=== PATIENT | male | born 1965 | race Caucasian/White ===

== ENCOUNTER 2016-10-22 08:02 | Emergency (ER) | payer BC, OTHER ==
[~2016-10-22] VITALS: Ht 188 cm; Wt 156.7 kg
[2016-10-22 08:10] VITALS: TEMP 37.1; Ht 188 cm; Wt 156.7 kg
[2016-10-22] MEDS ORDERED: CEFAZOLIN SOD 1000MG/55 ML D5W IV STA (08:25)
[2016-10-22] MEDS ORDERED: MoRPHine SULFATE 4 MG/ML 1 ML CARP\\VIAL IV STA (08:31)
[2016-10-22 08:43] LABS: BASO % 0.2 %; BASO ABS # 0.04 K/uL (0-0.2); COMPLETE YES; EOS % 0.5 %; HEMATOCRIT 44.9 % (42-52); IG% 0.3 %; LYMPH % 6.2 %; LYMPH ABS # 1.03 K/uL (1.2-3.4); MEAN CELL VOLUME 82.7 fL (80-100); MEAN CORPUSCULAR HEMOGLOBIN 29.8 pg (25-34); MEAN CORPUSCULAR HGB CONC 36.1 g/dl (32-36); MEAN PLATELET VOLUME 9.8 fL (7.4-10.4); NEUT % 81.8 %; PLATELET COUNT 245 K/uL (130-400); RED BLOOD COUNT 5.43 M/uL (4.7-6.1); WHITE BLOOD COUNT 16.73 K/uL (4.8-10.8)
[2016-10-22] MEDS ORDERED: CEFAZOLIN SOD 2000 MG in DEXTROSE 5% 50ML IV SCH (09:00)
[2016-10-22 09:02] LABS: BUN/CREATININE RATIO 11.4 (10-20); CALCIUM 8.8 mg/dl (8.5-10.1); CREATININE 1.2 mg/dl (0.60-1.40); POTASSIUM 4.1 mmol/L (3.5-5.1)
[2016-10-22 09:46] VITALS: BP 114/73; PULSE 90; O2SAT 96
--- NOTE | 2016-10-22 09:52 | DIAGNOSTIC IMAGING REPORT ---
LEFT LOWER EXTREMITY VENOUS DOPPLER CLINICAL HISTORY: Left lower extremity edema. COMPARISON STUDY: No previous studies for comparison. TECHNIQUE: Sonography of the deep venous system of the left lower extremity was performed. Compression and augmentation were evaluated. FINDINGS: The left common femoral, superficial femoral and popliteal veins were compressible. Augmentation was normal. Flow was shown within the deep calf vessels. Note was made of edema within the left calf. No fluid collection is identified. IMPRESSION: No evidence of deep venous thrombus within the left lower extremity. Electronically signed by: Flo Gloria M.D. 10/22/2016 9:51 AM Dictated Date/Time: 10/22/2016 9:50 AM
--- NOTE | 2016-10-22 10:24 | EMERGENCY ROOM VISIT NOTE ---
History Report prepared by Stefano: Raiza Yusuf Under the Supervision of: Dr. Philip Slater D.O. First contact with patient: 08:20 Chief Complaint: LEG PAIN,LEG INJURY Stated Complaint: LEG INJURY History of Present Illness The patient is a 51 year old male who presents to the Emergency Room with complaints of severe left leg pain, swelling, and erythema starting 2 days ago. The patient has injured his left leg several times over the past few years. 2 days ago, while moving the exercise [employer] he swung his leg and hit the bar. Since then he has been having his symptoms. He normally has intermittent chronic left lower extremity swelling. Prior to the surgery the left leg was similar in appearance to the right leg except there was some slight discoloration. He describes his pain to be burning and throbbing. The patient reports worsening pain with walking. He denies fevers, chills, or any other complaints. He has a history of cellulitis. Source of History: patient Onset: 2 days ago Position: leg (left) Symptom Intensity: severe Quality: burning, other (swelling, erythema, throbbing pain) Modifying Factors (Worsening): other (walking) Associated Symptoms: No chills, No fevers Review of Systems See HPI for pertinent positives & negatives. A total of 10 systems reviewed and were otherwise negative. Past Medical & Surgical Medical Problems: (1) Cellulitis Family History Patient reports no known family medical history. Social History Smoking Status: Never Smoker Marital Status: Housing Status: lives with family Occupation Status: employed Current/Historical Medications Scheduled Cephalexin Monohydrate (Keflex), 500 MG PO QID Scheduled PRN Hydrocodone/Acetaminophen 7.5MG/325MG ([place] 7.5MG/325MG), 1 TAB PO Q8 PRN for Pain Allergies Coded Allergies: Penicillins (Unverified Allergy, Severe, CHILDHOOD ALLERGY, 10/22/16) Physical Exam Vital Signs Date Time Temp Pulse Resp B/P Pulse Ox O2 Delivery O2 Flow Rate FiO2 10/22/16 09:46 90 18 114/73 96 Room Air 10/22/16 08:10 37.1 109 18 149/80 93 Room Air Physical Exam CONSTITUTIONAL/VITAL SIGNS: Reviewed / noted above. GENERAL: Non-toxic in appearance. INTEGUMENTARY: Warm, dry, and Duck. HEAD: Normocephalic. EYES: without scleral icterus or trauma. ENT/OROPHARYNX: clear and moist. LYMPHADENOPATHY/NECK: Is supple without lymphadenopathy or meningismus. RESPIRATORY: Lungs clear and equal. CARDIOVASCULAR: Regular rate and rhythm. GI/ABDOMEN: Soft and nontender. No organomegaly or pulsatile mass. No rebound or guarding. Normal bowel sounds. EXTREMITIES: Warm and well perfused. Left leg has chronic skin darkening of the lower anterior tibia, there is new erythema noted inferior to this area specifically over the left lower extremity and ankle. There is increased warmth to the area and edema greater than baseline. Mild calf tenderness. BACK: No CVA tenderness. NEUROLOGICAL: Intact without focal deficits. PSYCHIATRIC: normal affect. MUSCULOSKELETAL: Normally developed with good muscle tone. Medical Decision & Procedures ER Provider Diagnostic Interpretation: US results as stated below per my review and radiologist interpretation: LEFT LOWER EXTREMITY VENOUS DOPPLER CLINICAL HISTORY: Left lower extremity edema. COMPARISON STUDY: No previous studies for comparison. TECHNIQUE: Sonography of the deep venous system of the left lower extremity was performed. Compression and augmentation were evaluated. FINDINGS: The left common femoral, superficial femoral and popliteal veins were compressible. Augmentation was normal. Flow was shown within the deep calf vessels. Note was made of edema within the left calf. No fluid collection is identified. IMPRESSION: No evidence of deep venous thrombus within the left lower extremity. Electronically signed by: Flo Gloria M.D. 10/22/2016 9:51 AM Dictated Date/Time: 10/22/2016 9:50 AM Laboratory Results 10/22/16 08:40 Red Blood Count 5.43, Mean Corpuscular Volume 82.7, Mean Corpuscular Hemoglobin 29.8, Mean Corpuscular Hemoglobin Concent 36.1, Mean Platelet Volume 9.8, Neutrophils (%) (Auto) 81.8, Lymphocytes (%) (Auto) 6.2, Monocytes (%) (Auto) 11.0, Eosinophils (%) (Auto) 0.5, Basophils (%) (Auto) 0.2, Neutrophils # (Auto ) 13.69, Lymphocytes # (Auto) 1.03, Monocytes # (Auto) 1.84, Eosinophils # (Auto ) 0.08, Basophils # (Auto) 0.04 10/22/16 08:40 Test 10/22/16 08:40 White Blood Count 16.73 K/uL (4.8-10.8) Red Blood Count 5.43 M/uL (4.7-6.1) Hemoglobin 16.2 g/dL (14.0-18.0) Hematocrit 44.9 % (42-52) Mean Corpuscular Volume 82.7 fL (80-100) Mean Corpuscular Hemoglobin 29.8 pg (25-34) Mean Corpuscular Hemoglobin Concent 36.1 g/dl (32-36) Platelet Count 245 K/uL (130-400) Mean Platelet Volume 9.8 fL (7.4-10.4) Neutrophils (%) (Auto) 81.8 % Lymphocytes (%) (Auto) 6.2 % Monocytes (%) (Auto) 11.0 % Eosinophils (%) (Auto) 0.5 % Basophils (%) (Auto) 0.2 % Neutrophils # (Auto) 13.69 K/uL (1.4-6.5) Lymphocytes # (Auto) 1.03 K/uL (1.2-3.4) Monocytes # (Auto) 1.84 K/uL (0.11-0.59) Eosinophils # (Auto) 0.08 K/uL (0-0.5) Basophils # (Auto) 0.04 K/uL (0-0.2) RDW Standard Deviation 39.1 fL (36.4-46.3) RDW Coefficient of Variation 13.1 % (11.5-14.5) Immature Granulocyte % (Auto) 0.3 % Immature Granulocyte # (Auto) 0.05 K/uL (0.00-0.02) Anion Gap 10.0 mmol/L (3-11) Est Creatinine Clear Calc Drug Dose 118.0 ml/min Estimated GFR () 81.8 Estimated GFR (Non- 70.6 BUN/Creatinine Ratio 11.4 (10-20) Calcium Level 8.8 mg/dl (8.5-10.1) Laboratory results as stated above per my review. Medications Administered Medications (Trade) Dose Ordered Sig/Te Route Start Time Stop Time Status Last Admin Dose Admin Morphine Sulfate 4 mg 4 mg NOW STAT IV 10/22/16 08:31 10/22/16 08:33 DC 10/22/16 08:41 4 MG Cefazolin Sodium/ Dextrose (Ancef Iv/D5 50ml) 60 ml @ 120 mls/hr TODAY@0900 IV 10/22/16 09:00 10/22/16 10:00 DC 10/22/16 09:13 120 MLS/HR ED Course 0820: Previous medical records were reviewed. The patient was evaluated in room B10. A complete history and physical examination was performed. 0831: Morphine Sulfate 4 mg IV 0900: Cefazolin Sodium 2000 mg/Dextrose 60 mg @ 120 mls/hr IV 1020: On reevaluation, the patient is resting comfortably. I discussed the results and findings with the patient. He verbalized agreement of the treatment plan. He was discharged home. Medical Decision Differential diagnosis: Etiologies such as cellulitis, abscess, MRSA infection, DVT, necrotizing fasciitis, dermatitis, drug eruption, as well as others were entertained.. This is a 51-year-old male who presents to the ED with a chief complaint of left leg pain. Details noted above. The patient bumped his leg 2 days ago on a weight machine. He reports increased swelling, discomfort and redness. He does have some chronic discoloration of his left leg from chronic skin changes. Exam reveals some erythema below the chronic skin changes as well as increased warmth and edema in the area of the ankle. This is suggestive of cellulitis. The patient's white blood cell count 16.7. His PRP is unremarkable. Ultrasound did not show DVT. The patient was given IV Ancef 2 g. He'll be discharged on Keflex. He was told to return in 48 hours if no improvement. He was told to return sooner if significant worsening. Impression Primary Impression: Cellulitis of leg, left Scribe Attestation The scribe's documentation has been prepared under my direction and personally reviewed by me in its entirety. I confirm that the note above accurately reflects all work, treatment, procedures, and medical decision making performed by me. Departure Information Dispostion Home / Self-Care Prescriptions Hydrocodone/Acetaminophen 7.5MG/325MG ([place] 7.5MG/325MG) Tab 1 TAB PO Q8 Y for Pain, #15 TAB Prov: Philip Slater D.O. 10/22/16 Cephalexin Monohydrate (Keflex) 500 Mg Cap 500 MG PO QID, #40 CAP Prov: Philip Slater D.O. 10/22/16 Referrals No Doctor, Assigned (PCP) Forms HOME CARE DOCUMENTATION FORM, IMPORTANT VISIT INFORMATION Patient Instructions Cellulitis - [facility] Additional Instructions Return to the emergency department for possible admission if no improvement/ worsening after 48 hours. Return sooner for significant worsening despite taking antibiotics. Hydrocodone as prescribed for pain. This may cause constipation. Take over-the -counter laxative if necessary. No driving within 6 hours of use. May cause drowsiness.
[2016-10-22] MEDS ORDERED: CEPH500C PO (10:25)
[2016-10-22] MEDS ORDERED: HYDR-3983 PO (10:25)
== END 2016-10-22 10:35 | disposition home or self-care (01) ==
LOC: C.EDB 08:05
DX: L03.116 Cellulitis of left lower limb (principal)

== ENCOUNTER 2016-10-25 01:35 | Inpatient (IN) | payer BC, OTHER ==
[~2016-10-25] VITALS: Ht 188 cm; Wt 156.4 kg
[~2016-10-25 01:35] MED LIST: CEPH500C PO; HYDR-3983 PO
[2016-10-25] MEDS ORDERED: CEPH500C2 PO (02:17)
[2016-10-25] MEDS ORDERED: HYDR-3983 PO (02:18)
[2016-10-25] MEDS ORDERED: ACET-1311 PO (02:19)
[2016-10-25] MEDS ORDERED: CEFTRIAXONE SOD INJ 1 GM ADDVIAL IV STA (02:41)
[2016-10-25] MEDS ORDERED: SODIUM CHLORIDE 0.9% 1000ML 1,000 ML IV STA (02:41)
[2016-10-25] MEDS ORDERED: VANCOMYCIN INJ 2,500 MG in SODIUM CHLORIDE 0.9% 500ML 500 ML IV STA (02:41)
[2016-10-25] MEDS ORDERED: ONDANSETRON INJ 2 MG/ML 2 ML VIAL IV STA (02:52)
[2016-10-25] MEDS ORDERED: HYDROmorphone INJ 1 MG/ML SYR IV PRN (03:00)
[2016-10-25 03:16] LABS: BASO % 0.4 %; BASO ABS # 0.06 K/uL (0-0.2); COMPLETE YES; EOS % 0.9 %; IG% 0.4 %; LYMPH % 11.9 %; LYMPH ABS # 1.65 K/uL (1.2-3.4); MEAN CELL VOLUME 85.9 fL (80-100); MEAN CORPUSCULAR HEMOGLOBIN 30.7 pg (25-34); MEAN CORPUSCULAR HGB CONC 35.7 g/dl (32-36); MEAN PLATELET VOLUME 9.9 fL (7.4-10.4); MONO % 11.5 %; NEUT % 74.9 %; PLATELET COUNT 279 K/uL (130-400); RED BLOOD COUNT 5.12 M/uL (4.7-6.1); WHITE BLOOD COUNT 13.88 K/uL (4.8-10.8)
[2016-10-25 03:35] LABS: BUN/CREATININE RATIO 14.8 (10-20); CREATININE 1.3 mg/dl (0.60-1.40); POTASSIUM 3.9 mmol/L (3.5-5.1)
[2016-10-25] MEDS ORDERED: MoRPHine SULFATE 2 MG/ML CARP IV PRN (04:15)
[2016-10-25] MEDS ORDERED: ONDANSETRON INJ 2 MG/ML 2 ML VIAL IV PRN (04:15)
[2016-10-25] MEDS ORDERED: LORAZEPAM 2 MG/ML 1 ML VIAL IV PRN (04:15)
[2016-10-25] MEDS ORDERED: PROMETHAZINE HCL INJ 12.5 MG in SODIUM CHLORIDE 0.9% 50ML 50 ML IV PRN (04:15)
[2016-10-25] MEDS ORDERED: ACETAMINOPHEN IV 100 ML IV PRN (04:15)
[2016-10-25] MEDS ORDERED: ACETAMINOPHEN 325 MG TAB PO PRN ×2 (04:15)
[2016-10-25] MEDS ORDERED: ZOLPIDEM TARTRATE 5 MG TAB PO PRN (04:15)
[2016-10-25] MEDS ORDERED: DiphenhydrAMINE HCL 50 MG/ML VIAL IV PRN (04:15)
[2016-10-25] MEDS ORDERED: VANCOMYCIN TROUGH ONE (04:30)
[2016-10-25] MEDS ORDERED: VANCOMYCIN CONSULT ACTIVE PRN (04:36)
--- NOTE | 2016-10-25 06:08 | History and Physical ---
History & Physical Date & Time of Service: Oct 25, 2016 at 05:58 Chief Complaint: Cellulitis In Left Leg Primary Care Physician: No Doctor, Assigned History of Present Illness Source: patient The patient is a 51-year-old male who presents emergency department with left leg pain, swelling, redness the past 5 days, and now tonight developed weeping and drainage of purulent material while sleeping. It does seem to the emergency department on 3 nights ago, and was started on Keflex at that time. He has a history of left leg injury a number of times over the past few years, and 5 days ago, bumped his left leg while moving an exercise machine. When he went to bed this evening, his leg was somewhat uncomfortable, when his returned home from work later on in the evening she noted that his left leg was now weeping, and she woke him up and had him come to emergency department for assessment. Past Medical/Surgical History Medical Problems: (1) Cellulitis Status: Resolved Family History Patient reports no known family medical history. Social History Smoking Status: Never Smoker Smokeless Tobacco Use: No Alcohol Use: none Drug Use: none Marital Status: Housing status: lives with family Occupational Status: employed Multi-Drug Resistant Organisms History of MDRO: No Allergies Coded Allergies: Penicillins (Unverified Allergy, Severe, CHILDHOOD ALLERGY, 10/25/16) Home Medications Scheduled Cephalexin Monohydrate (Keflex), 500 MG PO QID Scheduled PRN Acetaminophen (Tylenol), 650 MG PO DIRECTED PRN for Pain Hydrocodone/Acetaminophen 7.5MG/325MG ([place] 7.5MG/325MG), 1 TAB PO Q8 PRN for Pain Review of Systems The patient denies chest pain, palpitations, shortness of breath, cough, lower extremity swelling, vision change, hearing change, sore throat, fevers, chills, sweats, weight change, fatigue, nausea, vomiting, abdominal pain, pelvic pain, blood in urine or stool, dysuria, urinary frequency or urgency, lightheadedness , dizziness, headache, memory loss, abnormal bruising or bleeding, imbalance, focal or generalized weakness, arthralgias or myalgias, back or neck pain, night sweats, or allergy symptoms. The review of systems is otherwise negative other than for that already noted above, and at least 10 systems have been reviewed. Physical Exam Vital Signs Date Time Temp Pulse Resp B/P Pulse Ox O2 Delivery O2 Flow Rate FiO2 10/25/16 03:00 37.0 78 20 114/76 93 Room Air 10/25/16 01:38 36.9 95 18 126/80 96 Room Air The patient is awake, well-developed and adequately nourished, alert and oriented 3, normocephalic and atraumatic, lying in bed and in no acute distress. HEENT--PERRL, EOMI, mucous membranes and oropharynx dry. Neck--supple, no JVD or bruits, thyroid normal, trachea midline, no adenopathy. Heart--normal S1 and S2, no extra beats, no murmurs, rubs or gallops. Lungs--clear bilaterally with good air movement, no respiratory distress, no accessory muscle use. Abdomen--normal bowel sounds and soft, nontender and nondistended, no hernias or masses, no organomegaly. Extremities--right lower extremity no cyanosis, clubbing or edema. Left lower extremity with swelling and erythema and warmth. There are good distal pulses b /l. Dermatologic--left lower extremity below the knee with moderately severe erythema, and in the distal third there is an area of abscess with open drainage of purulent material. Neurologic--cranial nerves II through XII grossly intact, motor and sensory examination normal. Rheumatologic--normal range of motion, nontender, muscles and joints. Psychiatric--normal affect. Diagnostics Laboratory Results Results Past 24 Hours Test 10/25/16 03:03 10/25/16 03:11 Range/Units White Blood Count 13.88 4.8-10.8 K/uL Red Blood Count 5.12 4.7-6.1 M/uL Hemoglobin 15.7 14.0-18.0 g/dL Hematocrit 44.0 42-52 % Mean Corpuscular Volume 85.9 80-100 fL Mean Corpuscular Hemoglobin 30.7 25-34 pg Mean Corpuscular Hemoglobin Concent 35.7 32-36 g/dl Platelet Count 279 130-400 K/uL Mean Platelet Volume 9.9 7.4-10.4 fL Neutrophils (%) (Auto) 74.9 % Lymphocytes (%) (Auto) 11.9 % Monocytes (%) (Auto) 11.5 % Eosinophils (%) (Auto) 0.9 % Basophils (%) (Auto) 0.4 % Neutrophils # (Auto) 10.38 1.4-6.5 K/uL Lymphocytes # (Auto) 1.65 1.2-3.4 K/uL Monocytes # (Auto) 1.60 0.11-0.59 K/uL Eosinophils # (Auto) 0.13 0-0.5 K/uL Basophils # (Auto) 0.06 0-0.2 K/uL RDW Standard Deviation 41.7 36.4-46.3 fL RDW Coefficient of Variation 13.2 11.5-14.5 % Immature Granulocyte % (Auto) 0.4 % Immature Granulocyte # (Auto) 0.06 0.00-0.02 K/uL Sodium Level 140 136-145 mmol/L Potassium Level 3.9 3.5-5.1 mmol/L Chloride Level 105 98-107 mmol/L Carbon Dioxide Level 28 21-32 mmol/L Anion Gap 7.0 3-11 mmol/L Blood Urea Nitrogen 19 7-18 mg/dl Creatinine 1.30 0.60-1.40 mg/dl Est Creatinine Clear Calc Drug Dose 108.8 ml/min Estimated GFR () 74.3 Estimated GFR (Non- 64.1 BUN/Creatinine Ratio 14.8 10-20 Random Glucose 103 70-99 mg/dl Calcium Level 9.0 8.5-10.1 mg/dl Bedside Lactic Acid Venous 1.07 0.90-1.70 mmol/L Microbiology Results 10/25/16 Blood Culture, Received Pending 10/25/16 Blood Culture, Received Pending 10/25/16 Gram Stain, Received Pending 10/25/16 Wound Culture, Received Pending Diagnostic Radiology Patient Name: MIKA HORTON Unit Number: [id number] Dictated: 10/22/16949 Transcribed: 10/22/16949 ONOFRE Printed Date/Time: [~ rep prt dt]/[~ rep prt tm] [~ rep ct labl] - [~ rep ct ivnm] [facility] [place] [address] Dictated: 10/22/16949 Transcribed: 10/22/16949 ONOFRE Printed Date/Time: [~ rep prt dt]/[~ rep prt tm] [~ rep ct labl] - [~ rep ct ivnm] [~ rep ct add3]] LEFT LOWER EXTREMITY VENOUS DOPPLER CLINICAL HISTORY: Left lower extremity edema. COMPARISON STUDY: No previous studies for comparison. TECHNIQUE: Sonography of the deep venous system of the left lower extremity was performed. Compression and augmentation were evaluated. FINDINGS: The left common femoral, superficial femoral and popliteal veins were compressible. Augmentation was normal. Flow was shown within the deep calf vessels. Note was made of edema within the left calf. No fluid collection is identified. IMPRESSION: No evidence of deep venous thrombus within the left lower extremity. Electronically signed by: Flo Gloria M.D. 10/22/2016 9:51 AM Dictated Date/Time: 10/22/2016 9:50 AM The status of this report is Signed. Draft = Not yet reviewed or approved by Radiologist. Signed = Reviewed and approved by Radiologist. <AttendingPhy></AttendingPhy> <FamilyPhy>No Doctor, Assigned</FamilyPhy> < PrimaryPhy>No Doctor, Assigned</PrimaryPhy> <UnitNumber>[id number]</UnitNumber> <VisitNumber>[id number]</VisitNumber> <PatientName>MIKA HORTON</PatientName > <DateOfBirth>1965</DateOfBirth> <Location>C.[facility]</Location> <ServiceDate> 10/22/16</ServiceDate> <MNE>ESINDI</MNE> <OrderingPhy>Philip Slater D.O.</ OrderingPhy> <OrderingPhyMNE>f rep ord dr santizo</OrderingPhyMNE> <DictatingPhyMNE> f rep dict dr santizo</DictatingPhyMNE> <CCListMNE>f rep ct mne</CCListMNE> < AdmittingPhyMNE>f pt admit dr santizo</AdmittingPhyMNE> <AttendingPhyMNE>f pt attend dr santizo</AttendingPhyMNE> <ConsultingPhyMNE>f pt consult dr santizo</ConsultingPhyMNE> <FamilyPhyMNE>f pt fam dr santizo</FamilyPhyMNE> <OtherPhyMNE>f pt other dr mne</OtherPhyMNE> < PrimaryPhyMNE>f pt prim care dr santizo</PrimaryPhyMNE> <ReferringPhyMNE>f pt referring dr santizo</ReferringPhyMNE> Impression Assessment and Plan Left lower extremity cellulitis and abscess--the patient will be admitted to the medical floor. He'll be placed on vancomycin IV per renal dosing, and ceftriaxone 1 g IV daily, noting a penicillin allergy. He'll be made nothing by mouth, placed on normal saline with potassium chloride 20 mEq of ML's per hour, and we will consult orthopedics for possible I&D. We'll order an x-ray of tib-fib, to assess for the less likely possibility of osteomyelitis. Surface wound culture has been ordered and performed. Venous Dopplers performed 3 nights ago and emergency department is negative for DVT of left lower extremity. Morphine sulfate 2-4 mg IV every 2 hours when necessary pain. Level of Care Med/Surg Advanced Directives Existing Advance Directive: No Existing Living Will: No Existing Power of Motor Electrician: No Resuscitation Status FULL RESUSCITATION VTE Prophylaxis VTE Risk Assessment Done? Y/N: Yes Risk Level: Moderate Social Service Consult None Apply
--- NOTE | 2016-10-25 06:40 | EMERGENCY ROOM VISIT NOTE ---
History Report prepared by Stefano: Sejal Meléndez Under the Supervision of: Dr. Jose Maria Dominguez M.D. First contact with patient: 02:04 Chief Complaint: LEG PAIN,LEG INJURY Stated Complaint: CELLULITIS IN LEFT LEG History of Present Illness The patient is a 51 year old male who presents to the Emergency Room with complaints of worsening lower left leg cellulitis over the past few days. His current discomfort is a 7/10 in severity. The patient states that he was in the emergency room 3 days ago with left leg pain, swelling, and redness and was diagnosed with cellulitis. He reports that he bumped his left leg a couple days prior to the onset of his symptoms. He was treated with IV Morphine and Ancef and was discharged on Keflex. An ultrasound at that time was negative for DVT. The following two days, he took off of work and kept his leg elevated. Yesterday , he was on his feet all day because he went back to work. When he got home, he elevated the leg and noticed some seepage from an area on his left leg. He woke up a few hours ago and noticed that the seeping was continuing. Since he was in the ED a few days ago, he has had increased swelling and redness to his left lower leg. It also started to streak upwards. He notes that his left leg is slightly larger than his right leg at baseline, but it is currently much worse. He has been taking Oxycodone about twice a day for his pain. Pt denies LOC, headache, fevers, chills, diaphoresis, visual changes, neck pain, chest pain, breathing difficulties, nausea, vomiting, abdominal pain, back pain, melena, hematochezia, urinary symptoms, numbness, weakness, lymphadenopathy, rash, or other complaints. Source of History: patient Onset: a few days ago Position: leg (right) Symptom Intensity: 7/10 Quality: other (cellulitis) Timing: worsening Review of Systems See HPI for pertinent positives and negatives. A total of ten systems were reviewed and were otherwise negative. Past Medical & Surgical Medical Problems: (1) Abscess of left lower extremity (2) Cellulitis (3) Cellulitis of left lower extremity Family History Patient reports no known family medical history. Social History Smoking Status: Never Smoker Marital Status: Housing Status: lives with family Occupation Status: employed Current/Historical Medications Scheduled Cephalexin Monohydrate (Keflex), 500 MG PO QID Scheduled PRN Acetaminophen (Tylenol), 650 MG PO DIRECTED PRN for Pain Hydrocodone/Acetaminophen 7.5MG/325MG ([place] 7.5MG/325MG), 1 TAB PO Q8 PRN for Pain Allergies Coded Allergies: Penicillins (Unverified Allergy, Severe, CHILDHOOD ALLERGY, 10/25/16) Physical Exam Vital Signs Date Time Temp Pulse Resp B/P Pulse Ox O2 Delivery O2 Flow Rate FiO2 10/25/16 06:04 37.0 74 18 112/66 95 Room Air 10/25/16 03:00 37.0 78 20 114/76 93 Room Air 10/25/16 01:38 36.9 95 18 126/80 96 Room Air Physical Exam GENERAL: Awake, alert, well-appearing, in no distress HENT: Normocephalic, atraumatic. Oropharynx unremarkable. EYES: Normal conjunctiva. Sclera non-icteric. NECK: Supple. No nuchal rigidity. FROM. No JVD. RESPIRATORY: Clear to auscultation. CARDIAC: Regular rate, normal rhythm. Extremities warm and well perfused. Pulses equal. ABDOMEN: Soft, non-distended. No tenderness to palpation. No rebound or guarding. No masses. RECTAL: Deferred. MUSCULOSKELETAL: Chest examination reveals no tenderness. The back is symmetrical on inspection without obvious abnormality. There is no CVA tenderness to palpation. No joint edema. LOWER EXTREMITIES: Left leg is significantly larger than the right. Some serous drainage from the left anterior jacobson. Left leg is erythematous. NEURO: Normal sensorium. No sensory or motor deficits noted. SKIN: No rash or jaundice noted. Medical Decision & Procedures Laboratory Results 10/25/16 03:03 Red Blood Count 5.12, Mean Corpuscular Volume 85.9, Mean Corpuscular Hemoglobin 30.7, Mean Corpuscular Hemoglobin Concent 35.7, Mean Platelet Volume 9.9, Neutrophils (%) (Auto) 74.9, Lymphocytes (%) (Auto) 11.9, Monocytes (%) (Auto) 11.5, Eosinophils (%) (Auto) 0.9, Basophils (%) (Auto) 0.4, Neutrophils # (Auto ) 10.38, Lymphocytes # (Auto) 1.65, Monocytes # (Auto) 1.60, Eosinophils # (Auto ) 0.13, Basophils # (Auto) 0.06 10/25/16 03:03 Test 10/25/16 03:03 10/25/16 03:11 White Blood Count 13.88 K/uL (4.8-10.8) Red Blood Count 5.12 M/uL (4.7-6.1) Hemoglobin 15.7 g/dL (14.0-18.0) Hematocrit 44.0 % (42-52) Mean Corpuscular Volume 85.9 fL (80-100) Mean Corpuscular Hemoglobin 30.7 pg (25-34) Mean Corpuscular Hemoglobin Concent 35.7 g/dl (32-36) Platelet Count 279 K/uL (130-400) Mean Platelet Volume 9.9 fL (7.4-10.4) Neutrophils (%) (Auto) 74.9 % Lymphocytes (%) (Auto) 11.9 % Monocytes (%) (Auto) 11.5 % Eosinophils (%) (Auto) 0.9 % Basophils (%) (Auto) 0.4 % Neutrophils # (Auto) 10.38 K/uL (1.4-6.5) Lymphocytes # (Auto) 1.65 K/uL (1.2-3.4) Monocytes # (Auto) 1.60 K/uL (0.11-0.59) Eosinophils # (Auto) 0.13 K/uL (0-0.5) Basophils # (Auto) 0.06 K/uL (0-0.2) RDW Standard Deviation 41.7 fL (36.4-46.3) RDW Coefficient of Variation 13.2 % (11.5-14.5) Immature Granulocyte % (Auto) 0.4 % Immature Granulocyte # (Auto) 0.06 K/uL (0.00-0.02) Anion Gap 7.0 mmol/L (3-11) Est Creatinine Clear Calc Drug Dose 108.8 ml/min Estimated GFR () 74.3 Estimated GFR (Non- 64.1 BUN/Creatinine Ratio 14.8 (10-20) Calcium Level 9.0 mg/dl (8.5-10.1) Bedside Lactic Acid Venous 1.07 mmol/L (0.90-1.70) Laboratory results reviewed by me Medications Administered Medications (Trade) Dose Ordered Sig/Te Route Start Time Stop Time Status Last Admin Dose Admin Sodium Chloride 1,000 ml @ 999 mls/hr Q1H1M STAT IV 10/25/16 02:41 10/25/16 03:41 DC 10/25/16 03:17 999 MLS/HR Vancomycin HCl/ Sodium Chloride (Vancomycin Inj/ Nss 500ml) 550 ml @ 200 mls/hr ONE STAT IV 10/25/16 02:41 10/25/16 05:25 DC 10/25/16 03:55 200 MLS/HR Ceftriaxone Sodium (Rocephin Inj) 1 gm NOW STAT IV 10/25/16 02:41 10/25/16 02:48 DC 10/25/16 03:17 1 GM Hydromorphone HCl (Dilaudid Inj) 1 mg Q15M PRN IV 10/25/16 03:00 11/08/16 02:59 10/25/16 03:18 1 MG Ondansetron HCl (Zofran Inj) 4 mg NOW STAT IV 10/25/16 02:52 10/25/16 02:53 DC 10/25/16 03:17 4 MG ED Course 0240: The patient was evaluated in room A10. A complete history and physical exam was performed. I discussed the treatment plan with the patient. The patient will be evaluated for further management. 0241: Ordered Rocephin Inj 1 gm IV, Vancomycin HCl 2500 mg/NSS 550 ml @ 200 mls/ hr IV, NSS 1000 ml @ 999 mls/hr IV . 0252: Ordered Zofran Inj 4 mg IV. 0300: Ordered Dilaudid Inj 1 mg IV. 0339: Dr. Leslie was paged at this time to evaluate the patient. Medical Decision Triage Nursing notes reviewed. The patient's presentation and history were concerning for leg pain and swelling. Prior records reviewed. Negative ultrasound. The patient was treated with Ancef and Keflex. Etiologies such as cellulitis, abscess, DVT, infection, trauma, muscular, lymphedema, idiopathic, as well as others were entertained. The patient was evaluated. He was given Dilaudid and Zofran. He was given normal saline. The patient received IV vancomycin and IV Rocephin. Unfortunately he is worsening despite adequate treatment. He will need IV treatment in Hospital. internal medicine was consulted. The patient was evaluated in the Emergency Room for further management. The chart was completed utilizing [employer] Speech voice recognition software. Grammatical errors, random word insertions, pronoun errors, and incomplete sentences are an occasional consequence of this system due to software limitations, ambient noise, and hardware issues. Any formal questions or concerns about the content, text, or information contained within the body of this dictation should be directly addressed to the physician for clarification. Consults Time Called: 338 Consulting Physician: Dr. Leslie [place] [facility] [place] Primary Impression: Cellulitis of left lower extremity Scribe Attestation The scribe's documentation has been prepared under my direction and personally reviewed by me in its entirety. I confirm that the note above accurately reflects all work, treatment, procedures, and medical decision making performed by me. Departure Information Dispostion Being Evaluated By Hospitalist Referrals No Doctor, Assigned (PCP) Patient Instructions My [facility]
[2016-10-25] MEDS: MoRPHine SULFATE 4 MG/ML 1 ML CARP\\VIAL IV PRN ×3 (07:07→16:25)
[2016-10-25 07:30] VITALS: O2SAT 98
[2016-10-25 07:32] VITALS: BP 141/96; PULSE 74; TEMP 36.7; O2SAT 98; Ht 188 cm; Wt 156.4 kg
[2016-10-25 07:45] VITALS: BP 141/96; PULSE 74; TEMP 36.7; O2SAT 95
--- NOTE | 2016-10-25 07:46 | DIAGNOSTIC IMAGING REPORT ---
LEFT TIBIA/FIBULA 2 VIEWS ROUTINE CLINICAL HISTORY: LLE CELLULITIS, TRAUMA pain COMPARISON: None. DISCUSSION: Diffuse soft tissue edematous change about the lower leg. Postoperative changes involving the knee consistent with an anterior cruciate ligament repair. Ankle mortise is aligned anatomically. No abnormal periosteal reaction. IMPRESSION: Generalized soft tissue edema. No acute bony abnormality. Electronically signed by: Justino Grover M.D. 10/25/2016 7:45 AM Dictated Date/Time: 10/25/2016 7:43 AM
[2016-10-25] MEDS ORDERED: LORAZEPAM INJ 0.5 MG in SYRINGE 0.75 ML IV PRN (08:00)
[2016-10-25] MEDS: NSS + 20MEQ KCL 1000ML 1,000 ML IV SCH ×2 (08:19→18:21)
--- NOTE | 2016-10-25 09:30 | Pharmacy Progress Note ---
Pharmacy Antibiotic Consult Date of Service: Oct 25, 2016. Pharmacy Dosing Scope Pharmacy is consulted to initiate Vanco IV dosing therapy, order appropriate labs and adjust drug dose/frequency. Subjective The patient is a 51 year old male admitted on Oct 25, 2016 at 04:12. Objective Height (Feet): 6 Height (Inches): 2.00 Weight (Kilograms): 156.400 Lab Results (24hrs): Item Value Date Time Creatinine 1.30 mg/dl 10/25/16 030 Est Creatinine Clear Calc Drug Dose 108.8 ml/min 10/25/16 0303 Laboratory Tests Test 10/25/16 03:03 BUN/Creatinine Ratio 14.8 Blood Urea Nitrogen 19 mg/dl Creatinine 1.30 mg/dl White Blood Count 13.88 K/uL Red Blood Count 5.12 M/uL Hemoglobin 15.7 g/dL Hematocrit 44.0 % Mean Corpuscular Volume 85.9 fL Mean Corpuscular Hemoglobin 30.7 pg Mean Corpuscular Hemoglobin Concent 35.7 g/dl Platelet Count 279 K/uL Mean Platelet Volume 9.9 fL Neutrophils (%) (Auto) 74.9 % Lymphocytes (%) (Auto) 11.9 % Monocytes (%) (Auto) 11.5 % Eosinophils (%) (Auto) 0.9 % Basophils (%) (Auto) 0.4 % Neutrophils # (Auto) 10.38 K/uL Lymphocytes # (Auto) 1.65 K/uL Monocytes # (Auto) 1.60 K/uL Eosinophils # (Auto) 0.13 K/uL Basophils # (Auto) 0.06 K/uL Micro Results: Item Value Date Time Gram Stain Received 10/25/16 0550 Drainage - Surface Leg Lower Left Pending Blood Culture Received 10/25/16 0303 Blood Pending Blood Culture Received 10/25/16 0255 Blood Pending Assessment & Plan Pt is a 51yo obese M p/w LLE cellulitis/abscess. Currently afebrile, experiencing leukocytosis w/ a L shift. Blood and wound cultures are pending. Provider is aware of severe PCN allergy, pt is also receiving Rocephin. Pt population p'kinetics: t1/2=7.4hrs, ke=0.094. Pt is at risk for Vanco accumulation. Vanco * Loading dose: 2500mg (16mg/kg) IV X 1 dose given at 0355: * 2300mg (16mg/kg) IV every 9 hours starting at 1100. I have started the MD early bc the pt has not received a 25mg/kg LD. * Goal trough level estimate: between 15 - 20 mcg/mL until all C/s result. Then if cellulitis may have a goal range of 10-15. * Trough or random level has been ordered for: . Rocephin * Not consulted. Provider aware of allergy. Thank you for consulting the pharmacy kinetic team and including us in the care of Mr. Monge. Pharmacy will continue to follow and will adjust dose/frequency as necessary. Thank you
[2016-10-25] MEDS: VANCOMYCIN INJ 2,300 MG in SODIUM CHLORIDE 0.9% 500ML 500 ML IV SCH ×2 (10:47→20:57)
[2016-10-25 15:03] VITALS: BP 134/85; PULSE 63; TEMP 36.8; O2SAT 98
[2016-10-25 16:00] VITALS: O2SAT 98
[2016-10-25] MEDS ORDERED: PNEUMOCOCCAL ADMINISTRATION CHARGE ONE (16:00)
[2016-10-25] MEDS ORDERED: PNEUMOCOCCAL POLYSACCHARIDES 25 MCG/0.5 ML VIAL/SYR IM. ONE (16:00)
--- NOTE | 2016-10-25 17:08 | ORTHOPEDIC PROGRESS NOTE ---
DATE: 10/25/2016 SUBJECTIVE: The patient is a 51-year-old white male who was admitted by the [facility] for cellulitis of the left lower extremity. We were consulted to rule out cellulitis/abscess. The patient states that he was moving an exercise bicycle approximately 5-6 days ago. He ended up bumping his jacobson just above the ankle while doing this. At that time, became sore and swollen and gradually became increasingly red and painful. He came to the Emergency Room on the and was given antibiotics at that point in time and sent home on oral antibiotics. Ultrasound was done at that point and showed no DVT and no obvious fluid collections. The patient states that it continued to worsen with erythema travelling up his leg. At one point prior to coming in, he had a small, what sounds like a pustule that was developing on the anterior portion of the tibia and it was starting to seep somewhat through the night; however, it must have opened and a mild to moderate amount of purulence had drained from that wound. He states that it has not really drained since that time; however, the pain continued to worsen and swelling continued to worsen and he thought he should be seen. He came back to the Emergency Room and was seen by the staff and was admitted by the [facility]. Currently, the patient is comfortable and has no overt complaints. He does have discomfort in the left lower extremity. He states that he has had problems with this leg in the past where he has been hit by a softball and one other time where he had increased swelling of that area. He has had cellulitis of his right lower extremity and his was with him at this point in time states that he on occasion does have problems with swelling of both of his legs, although not to the severity. PHYSICAL EXAMINATION: GENERAL: The patient appears comfortable again. CURRENT VITAL SIGNS: Shown to be afebrile. EXTREMITIES: On examination of the patient's left lower extremity, he has a moderate cellulitis noted of the lower extremity below the knee, just above the ankle there is a small area that appears to have blistered and broken and no overt drainage at this time from this area. He has some skin mottling that is mild around the blistered area and has a deep erythema in this area. The erythema goes all the way around the back of the posterior portion of the leg and also travels up to almost the knee with the erythema over the medial aspect of the calf. He has moderate discomfort on palpation and has some pitting edema noted in and around the area where the blister is and also traveling proximal. I cannot appreciate a large area of fluctuance at this time; he might have a slight amount of area of fluctuance just anterior and lateral to the blistered area. He definitely has moderate subcutaneous edema of the lower extremity at this time and has some swelling down into the dorsum of the foot; however, the erythema stops at the ankle. He has decent range of motion of his right ankle and toes without discomfort. Sensation is essentially intact. He states that he has some slight numbness of the lateral aspect of his foot and of the fifth toe, but it is mild at best, compared to the other toes. X-RAY EXAMINATION: The patient had a tib-fib x-ray of the left lower extremity, which basically shows no fractures, no acute bony abnormality and just generalized soft tissue edema. ASSESSMENT: Cellulitis, left lower extremity. PLAN: I do not feel he has an overt abscess at this time; however, I will have Dr. Briceno see this patient here shortly and consider MRI, if he feels is necessary. Otherwise, will continue elevation of the left lower extremity up on at least 2 pillows, to keep it above the heart level and continue IV antibiotics. SYBIL
--- NOTE | 2016-10-25 19:58 | Orthopedic Progress Note ---
Orthopedic Progress Note Date of Service Oct 25, 2016. Objective LLE: mild serous drainage anterior distal tibia, erythema, - homans, no fluctuance appreciated Date Time Temp Pulse Resp B/P Pulse Ox O2 Delivery O2 Flow Rate FiO2 10/25/16 16:00 98 Room Air 10/25/16 15:03 36.8 63 18 134/85 98 Room Air 10/25/16 07:45 36.7 74 16 141/96 95 Room Air 10/25/16 07:32 36.7 74 17 141/96 98 Room Air 10/25/16 07:30 98 Room Air 10/25/16 06:04 37.0 74 18 112/66 95 Room Air 10/25/16 03:00 37.0 78 20 114/76 93 Room Air 10/25/16 01:38 36.9 95 18 126/80 96 Room Air Laboratory Results 24 Hours: Test 10/25/16 03:03 White Blood Count 13.88 K/uL Red Blood Count 5.12 M/uL Hemoglobin 15.7 g/dL Hematocrit 44.0 % Mean Corpuscular Volume 85.9 fL Mean Corpuscular Hemoglobin 30.7 pg Mean Corpuscular Hemoglobin Concent 35.7 g/dl Platelet Count 279 K/uL Mean Platelet Volume 9.9 fL Neutrophils (%) (Auto) 74.9 % Lymphocytes (%) (Auto) 11.9 % Monocytes (%) (Auto) 11.5 % Eosinophils (%) (Auto) 0.9 % Basophils (%) (Auto) 0.4 % Neutrophils # (Auto) 10.38 K/uL Lymphocytes # (Auto) 1.65 K/uL Monocytes # (Auto) 1.60 K/uL Eosinophils # (Auto) 0.13 K/uL Basophils # (Auto) 0.06 K/uL Assessment & Plan Assessment: LLE cellulits Plan: no fluctuance appreciated on exam. Appears to have decompressed itself. Will observe for another day. If not imporoving after the IV abx will order MRI to r/ o fluid collection
[2016-10-25 22:52] VITALS: BP 145/89; PULSE 69; TEMP 36.4; O2SAT 98
[2016-10-26] MEDS: MoRPHine SULFATE 4 MG/ML 1 ML CARP\\VIAL IV PRN ×8 (00:05→23:27)
[2016-10-26] MEDS: NSS + 20MEQ KCL 1000ML 1,000 ML IV SCH ×3 (03:56→23:33)
[2016-10-26] MEDS ORDERED: CEFTRIAXONE SOD INJ 1 GM in DEXTROSE 5% ADD-VANTAGE 50ML 50 ML IV SCH (04:00)
[2016-10-26] MEDS ORDERED: VANCOMYCIN TROUGH ONE ×3 (04:30→08:30)
[2016-10-26 05:57] LABS: BASO % 0.3 %; BASO ABS # 0.04 K/uL (0-0.2); COMPLETE YES; EOS % 1.9 %; HEMATOCRIT 39.8 % (42-52); IG% 0.2 %; LYMPH % 7.7 %; LYMPH ABS # 0.97 K/uL (1.2-3.4); MEAN CELL VOLUME 85.2 fL (80-100); MEAN CORPUSCULAR HEMOGLOBIN 29.3 pg (25-34); MEAN CORPUSCULAR HGB CONC 34.4 g/dl (32-36); MEAN PLATELET VOLUME 9.5 fL (7.4-10.4); MONO % 10.7 %; NEUT % 79.2 %; PLATELET COUNT 256 K/uL (130-400); RED BLOOD COUNT 4.67 M/uL (4.7-6.1); WHITE BLOOD COUNT 12.57 K/uL (4.8-10.8)
[2016-10-26] MEDS ORDERED: VANCOMYCIN INJ 2,300 MG in SODIUM CHLORIDE 0.9% 500ML 500 ML IV SCH ×2 (06:00→09:00)
[2016-10-26 06:39] LABS: BUN/CREATININE RATIO 11.2 (10-20); CALCIUM 8.3 mg/dl (8.5-10.1); CREATININE 1.1 mg/dl (0.60-1.40); MAGNESIUM 2.2 mg/dl (1.8-2.4); POTASSIUM 4.1 mmol/L (3.5-5.1)
[2016-10-26 07:35] VITALS: BP 138/84; PULSE 78; TEMP 36.8; O2SAT 98
--- NOTE | 2016-10-26 09:02 | Orthopedic Progress Note ---
Orthopedic Progress Note Date of Service Oct 26, 2016. Subjective Reports: feeling well, Denies: SOB, chest pain, light headedness, nausea / vomiting Additional Notes: having continued pain in the lower leg, unchanged since yesterday. states redness no better or worse than yesterday. Objective Left lower extremity, showing moderate cellulitis lower extremity from just below knee joint to the ankle. small open area distal 1/3 of tibia with fluctuant area noted around. also has pitting edema noted throughout the left lower leg. I did not exam this patient yesterday but he stated the redness is unchanged since yesterday. sensation intact Date Time Temp Pulse Resp B/P Pulse Ox O2 Delivery O2 Flow Rate FiO2 10/26/16 07:35 36.8 78 16 138/84 98 Room Air 10/26/16 00:14 Room Air 10/25/16 22:52 36.4 69 17 145/89 98 Room Air 10/25/16 16:00 98 Room Air 10/25/16 15:03 36.8 63 18 134/85 98 Room Air Laboratory Results 24 Hours: Test 10/26/16 05:35 White Blood Count 12.57 K/uL Red Blood Count 4.67 M/uL Hemoglobin 13.7 g/dL Hematocrit 39.8 % Mean Corpuscular Volume 85.2 fL Mean Corpuscular Hemoglobin 29.3 pg Mean Corpuscular Hemoglobin Concent 34.4 g/dl Platelet Count 256 K/uL Mean Platelet Volume 9.5 fL Neutrophils (%) (Auto) 79.2 % Lymphocytes (%) (Auto) 7.7 % Monocytes (%) (Auto) 10.7 % Eosinophils (%) (Auto) 1.9 % Basophils (%) (Auto) 0.3 % Neutrophils # (Auto) 9.95 K/uL Lymphocytes # (Auto) 0.97 K/uL Monocytes # (Auto) 1.34 K/uL Eosinophils # (Auto) 0.24 K/uL Basophils # (Auto) 0.04 K/uL Assessment & Plan Assessment: LLE cellulits Plan: area has not seemed to improve over the last 24 hours on Abx, will proceed with MRI to eval for abscess/early tenosynovitis. will cont Abx today, have NPO for possible I&D tomorrow. will consult ID to discuss best Abx coverage.
--- NOTE | 2016-10-26 09:37 | Hospitalist Progress Note ---
Hospitalist Progress Note Date of Service Oct 26, 2016. (Keith Walker, PADrewC) Subjective Pt evaluation today including: conversation w/ patient PO Intake: Patient is on a full diet at this time. Voiding: no voiding problems Supervising Physician: Dr Bay The patient is a 51 year old male who was admitted yesterday for a LLE cellulitis. He was placed on IV antibiotics on admission. He was evaluated by orthopedics and there was the recommendation for possible MRI if it does not appear that he is responding. The patient was evaluated on 10-26-16. He reports that he is about the same as yesterday. He states that he has the same amount of swelling. He states that the numbness may be a little better and that he is not really having any numbness today. The numbness was over the 5th digit and along the lateral side of the foot. He reports that this is better at this time. He states that when he is laying at rest the pain is improved and may be in the 2-3 range. However when he gets up to go to the bathroom or if he sits up with his foot over the edge of the bed, he will have increased pain and pressure sensation. He will rate the pain at approximately a 6. He states that the longer that he is up on the foot the pain does seem to lessen. He has not had any further drainage that he is aware of. He denies any other difficulties or problems at this time. He has not had any respiratory symptoms. He has not had any cough or congestion. He has not had any wheezing. He has not had any increased shortness of breath. He reports that he has been using his incentive spirometer and feels that it was helpful. He denies any cardiac symptoms. He has not had any chest pain or heaviness. He has not had any palpitations. He denies any fever or chills at this time. He states that he started with eating last evening and has not had any difficulty. He has not had any nausea or vomiting. He has not had any indigestion or heartburn. He has not had any difficulty with his swallowing. He states that his bowels did move last night and it was essentially a normal bowel movement. He did not notice any blood in the stool. He states that he is voiding well and without difficulty. He denies any other concerns or problems. (Keith Walker PA-C) Objective Vital Signs Date Time Temp Pulse Resp B/P Pulse Ox O2 Delivery O2 Flow Rate FiO2 10/26/16 07:35 36.8 78 16 138/84 98 Room Air 10/26/16 00:14 Room Air 10/25/16 22:52 36.4 69 17 145/89 98 Room Air 10/25/16 16:00 98 Room Air 10/25/16 15:03 36.8 63 18 134/85 98 Room Air (Keith Walker PA-C) Physical Exam General Appearance: WD/WN, no apparent distress Eyes: PERRL, EOMI, sclerae normal ENT: hearing grossly normal Neck: supple, no adenopathy, no carotid bruits, trachea midline Respiratory/Chest: chest non-tender, lungs clear, normal breath sounds, no respiratory distress, no accessory muscle use Cardiovascular: regular rate, rhythm, no gallop, no murmur Abdomen: normal bowel sounds, non tender, soft, no organomegaly Neurologic/Psychiatric: biomedical manager II-XII nml as tested, alert, normal mood/affect, oriented x 3 Notes: RLE: There is no erythema or edema. There is no tenderness to palpation. Good range of motion. Distal pulses at the Dorsalis Pedis and Anterior Tibialis are 2/4. Sensation is normal. LLE: The patient has erythema from the proximal tibia just below the knee down to the ankle. The erythema deepens at the distal tibia anteriorly. The erythema does completely encircle the distal lower extremity. There is 2+ edema of the LLE. The edema is pitting. There is mild tenderness in the upper portion of the lower extremity. The tenderness increases towards the lower portion of the lower extremity anteriorly and becomes moderate to severe. The dressing was removed and the area which had been draining is no longer draining. However, there is a fluctuant area surrounding the previous open area to about 2 cm surrounding the previous opening. This area is severely tender to palpation. There is no drainage expressed with mild pressure. (Keith Walker PA-C) Laboratory Results Last 24 Hours Test 10/26/16 05:35 10/26/16 08:30 White Blood Count 12.57 K/uL Red Blood Count 4.67 M/uL Hemoglobin 13.7 g/dL Hematocrit 39.8 % Mean Corpuscular Volume 85.2 fL Mean Corpuscular Hemoglobin 29.3 pg Mean Corpuscular Hemoglobin Concent 34.4 g/dl Platelet Count 256 K/uL Mean Platelet Volume 9.5 fL Neutrophils (%) (Auto) 79.2 % Lymphocytes (%) (Auto) 7.7 % Monocytes (%) (Auto) 10.7 % Eosinophils (%) (Auto) 1.9 % Basophils (%) (Auto) 0.3 % Neutrophils # (Auto) 9.95 K/uL Lymphocytes # (Auto) 0.97 K/uL Monocytes # (Auto) 1.34 K/uL Eosinophils # (Auto) 0.24 K/uL Basophils # (Auto) 0.04 K/uL RDW Standard Deviation 40.6 fL RDW Coefficient of Variation 13.1 % Immature Granulocyte % (Auto) 0.2 % Immature Granulocyte # (Auto) 0.03 K/uL Sodium Level 138 mmol/L Potassium Level 4.1 mmol/L Chloride Level 103 mmol/L Carbon Dioxide Level 26 mmol/L Anion Gap 9.0 mmol/L Blood Urea Nitrogen 12 mg/dl Creatinine 1.10 mg/dl Est Creatinine Clear Calc Drug Dose 128.6 ml/min Estimated GFR () 90.9 Estimated GFR (Non- 78.4 BUN/Creatinine Ratio 11.2 Random Glucose 94 mg/dl Calcium Level 8.3 mg/dl Magnesium Level 2.2 mg/dl Vancomycin Level Trough 26.6 mcg/ml (Keith Walker PA-C) Assessment and Plan (1) Abscess of left lower extremity Assessment & Plan: It appears that the patient is reforming an abscess in the area. Justino Quesada from orthopedics did come in and evaluate the patient while I was present and it was felt that there was an abscess forming again. After discussion with Justino, it was determined that ortho service was going to order an MRI of the LLE to evaluate and if there was an abscess forming then possibly take the patient to the OR for I&D. (2) Cellulitis of left lower extremity Assessment & Plan: Regarding his Cellulitis of the LLE. There does not appear to be much change from admission with reviewing previous notes and discussion with the patient. Case was discussed with Dr Bay and it was decided to continue Vancomycin but to D/C rocephin. I will get the patient started on Imipenem 500 mg Q 6 hours until we get initial culture results. Further antibiotic coverage to be determined by culture results and/or clinical response. It was also discussed with the patient to make sure that he is using his incentive spirometer several times a day due to his decreased mobility at this time. It was discussed with him about the increased risk of pneumonia with his decreased activity. Patient voiced understanding. He is to continue to be on DVT prophylaxis. Continued [facility] stay due to: multiple IV medications needed Discharge planning: uncertain (Keith Walker, PA-C) PA Physician Supervision Note: I interviewed and examined the patient. Discussed with Keith Walker PAC and agree with findings and plan as documented in the note. Any exceptions or clarifications are listed here: None Pt here with lower leg cellulitis with concern for a deep tissue infection, ortho is seeing and MRI pending vss leg is erythematous and brawney continue vanco and ceftriaxone, await studies to evaluate for abscess or osteo Documented By: [place] (El Bay M.D.)
[2016-10-26] MEDS: IMIPENEM-CILASTATIN 500 MG in DEXTROSE 5% 100ML 100 ML IV SCH ×2 (10:44→15:30)
--- NOTE | 2016-10-26 10:52 | Pharmacy Progress Note ---
Pharmacy Antibiotic Prog Note Date of Service: Oct 26, 2016. Subjective: The patient is currently receiving vancomycin 2300 mg IV every 9 hours and Primaxin 500mg IV q 6h. The patient is currently on day # 2/10 of vancomycin IV and day #1/10 of Primaxin IV therapy. Objective: Height (Feet): 6 Height (Inches): 2.00 Weight (Kilograms): 156.400 Levels: Item Value Date Time Vancomycin Level Trough 17.1 mcg/ml 10/26/16 0900 Lab Results (24hrs): Laboratory Tests Test 10/26/16 05:35 BUN/Creatinine Ratio 11.2 Blood Urea Nitrogen 12 mg/dl Creatinine 1.10 mg/dl White Blood Count 12.57 K/uL Red Blood Count 4.67 M/uL Hemoglobin 13.7 g/dL Hematocrit 39.8 % Mean Corpuscular Volume 85.2 fL Mean Corpuscular Hemoglobin 29.3 pg Mean Corpuscular Hemoglobin Concent 34.4 g/dl Platelet Count 256 K/uL Mean Platelet Volume 9.5 fL Neutrophils (%) (Auto) 79.2 % Lymphocytes (%) (Auto) 7.7 % Monocytes (%) (Auto) 10.7 % Eosinophils (%) (Auto) 1.9 % Basophils (%) (Auto) 0.3 % Neutrophils # (Auto) 9.95 K/uL Lymphocytes # (Auto) 0.97 K/uL Monocytes # (Auto) 1.34 K/uL Eosinophils # (Auto) 0.24 K/uL Basophils # (Auto) 0.04 K/uL Recent Pertinent Medications: Rocephin 1gm IV q 24 hrs; pt rec'd 2 doses Assessment & Plan: Pt is ordered vancomycin and Primaxin for cellulitis of LLE. Pt failed PO abx therapy as out-pt. There is concern that an abscess is reforming. An MRI is ordered with possible I&D if abscess is present. VANCOMYCIN: This drug level (trough 17.1mcg/ml) is Therapeutic: Dose that was scheduled for 2100 on 10/25 was not initiated until 0000 on 10/26. Trough level of 17.1 at 0900 this AM is not quite at SS. Trough drawn a little early due to increased BMI and possibility of accumulation. Therefore, will change dose to vancomycin 2000 mg IV every 11 hours, ~13mg/kg/ dose until cx are back. Goal trough level estimate: between 15 - 20 mcg/mL. Trough level has been ordered for: 10/27 prior to 1800 dose. Pharmacy will continue to follow and will adjust dose/frequency as necessary. Thank you
[2016-10-26 15:15] VITALS: O2SAT 97
[2016-10-26 15:16] VITALS: BP 127/82; PULSE 98; TEMP 36.8; O2SAT 97
--- NOTE | 2016-10-26 17:36 | Medical Consult ---
Consultation Date of Consultation: Oct 26, 2016. Attending Physician: Woody Leslie M.D. 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 He had some evidence of purulent drainage, was seen in the emergency room on the where he was diagnosed with cellulitis, with ultrasound showing no evidence of DVT. He was sent home on cephalexin, but developed worsening swelling and erythema along with low-grade fever and worsening drainage from his worsening necrotic left leg wound. return the emergency department and has been admitted for further management. Has been started on vancomycin and imipenem. He has been seen by Orthopedic surgery who is contemplating surgical debridement. x-ray of the leg, read by me, shows no obvious abnormalities. Cultures from the are pending, Gram stain is negative. Blood cultures are no growth to date. MRI is pending. Past Medical/Surgical History Medical Problems: (1) Abscess of left lower extremity Status: Acute (2) Cellulitis of left lower extremity Status: Acute (3) Cellulitis of leg, left Status: Acute Medical/Sursical History: (1) Cellulitis (2) Mixed cryoglobulinemia Family History Patient reports no known family medical history. Social History Smoking Status: Never Smoker Smokeless Tobacco Use: No Alcohol Use: none Drug Use: none Marital Status: Housing Status: lives with family Occupation Status: employed Allergies Coded Allergies: Penicillins (Unverified Allergy, Severe, CHILDHOOD ALLERGY, 10/25/16) Current Inpatient Medications Current Inpatient Medications Medications (Trade) Dose Ordered Sig/Te Route Start Time Stop Time Status Last Admin Dose Admin Acetaminophen (Tylenol Tab) 650 mg Q4H PRN PO 10/25/16 04:15 11/24/16 04:14 Diphenhydramine HCl 25 mg 25 mg Q4H PRN IV 10/25/16 04:15 11/24/16 04:14 Promethazine HCl/ Sodium Chloride (Phenergan Inj/ Nss 50ml) 50.5 ml @ 202 mls/hr Q4H PRN IV 10/25/16 04:15 11/24/16 04:14 Zolpidem Tartrate (Ambien Tab) 5 mg HSZ PRN PO 10/25/16 04:15 11/24/16 04:14 Ondansetron HCl (Zofran Inj) 4 mg Q6H PRN IV 10/25/16 04:15 11/24/16 04:14 Morphine Sulfate (MoRPHine SULFATE INJ) 2 mg Q2H PRN IV 10/25/16 04:15 11/08/16 04:14 Morphine Sulfate 4 mg 4 mg Q2H PRN IV 10/25/16 04:15 11/08/16 04:14 10/26/16 15:36 4 MG Potassium Chloride/Sodium Chloride 1,000 ml @ 100 mls/hr Q10H IV 10/25/16 08:00 11/24/16 04:11 10/26/16 13:38 100 MLS/HR Acetaminophen (Ofirmev Iv) 100 ml @ 400 mls/hr Q8H PRN IV 10/25/16 04:15 11/24/16 04:14 Vancomycin HCl 1 ea 1 ea DAILY PRN N/A 10/25/16 04:36 11/24/16 04:35 Lorazepam 0.5 mg/ Syringe 1 ml @ 1 mls/min Q4H PRN IV 10/25/16 08:00 11/24/16 07:59 Imipenem/ Cilastatin Sodium 500 mg/Dextrose 120 ml @ 100 mls/hr Q6H IV 10/26/16 10:00 11/05/16 09:44 10/26/16 15:30 100 MLS/HR Vancomycin HCl/ Sodium Chloride (Vancomycin Inj/ Nss 500ml) 540 ml @ 200 mls/hr Q11H IV 10/26/16 20:00 11/04/16 19:59 Review of Systems Constitutional: + fatigue, + fever Eyes: No problem reported ENT: No problem reported Respiratory: No problem reported Cardiovascular: No problem reported Abdomen: No problem reported Musculoskeletal: + calf pain, + swelling Genitourinary - Male: No problem reported Neurologic: No problem reported Psychiatric: No problem reported Endocrine: No problem reported Hematologic / Lymphatic: No problem reported Integumentary: + new/changing skin lesions Allergic / Immunologic: No problem reported Physical Exam Date Time Temp Pulse Resp B/P Pulse Ox O2 Delivery O2 Flow Rate FiO2 10/26/16 15:16 36.8 98 16 127/82 97 Nasal Cannula 10/26/16 07:55 Room Air 10/26/16 07:35 36.8 78 16 138/84 98 Room Air 10/26/16 00:14 Room Air 10/25/16 22:52 36.4 69 17 145/89 98 Room Air General Appearance: WD/WN, no apparent distress Head: normocephalic, atraumatic Eyes: normal inspection, EOMI, sclerae normal ENT: normal ENT inspection, hearing grossly normal, pharynx normal Neck: supple, no adenopathy, thyroid normal, trachea midline Respiratory/Chest: chest non-tender, lungs clear, normal breath sounds, no respiratory distress Cardiovascular: regular rate, rhythm, no gallop, no murmur Abdomen/GI: normal bowel sounds, non tender, soft, no organomegaly Back: normal inspection, no CVA tenderness Extremities/Musculoskelatal: + inflammation ( left leg), + swelling ( left leg) Neurologic/Psych: alert, oriented x 3 Skin: normal color, no rash, + pertinent finding ( necrotic left calf lesion, erythema involving the left leg below the knee to the dorsum of the foot) Lymphatic: no adenopathy Laboratory Results RUN DATE: 10/26/16 [facility] LAB PAGE 1 RUN TIME: 1229 Specimen Inquiry PATIENT: MIKA HORTON LOC: [id number] U # : [id number] AGE/SX: 51/M ROOM: 14 REG : 10/25/[address]: Woody Leslie M.D : 1965 BED: 1 DIS : STATUS: ADM IN TLOC: SPEC #: [id number] DAMON: 10/25/16 STATUS: RES REQ #: [id number] RECD: 10/25/[address] [facility] [address]: Woody Leslie M.D. SOURCE: DRAIN-SURF ENTR: 10/25/[address]: El Henry, D.O. SPDESC: LEG Jose Maria Benavides MD No Doctor, Assigned ORDERED: SURF WND CU/[facility] COMMENTS: Has Specimen Been Obtained/Collected? Y Procedure Result Verified Site GRAM STAIN Final 10/25/16 RESULT NO WBCs SEEN NO ORGANISMS SEEN SURFACE WOUND CULTURE Preliminary 10/26/16122 NO GROWTH TO DATE. Last 24 Hours Test 10/26/16 05:35 10/26/16 09:00 White Blood Count 12.57 K/uL Red Blood Count 4.67 M/uL Hemoglobin 13.7 g/dL Hematocrit 39.8 % Mean Corpuscular Volume 85.2 fL Mean Corpuscular Hemoglobin 29.3 pg Mean Corpuscular Hemoglobin Concent 34.4 g/dl Platelet Count 256 K/uL Mean Platelet Volume 9.5 fL Neutrophils (%) (Auto) 79.2 % Lymphocytes (%) (Auto) 7.7 % Monocytes (%) (Auto) 10.7 % Eosinophils (%) (Auto) 1.9 % Basophils (%) (Auto) 0.3 % Neutrophils # (Auto) 9.95 K/uL Lymphocytes # (Auto) 0.97 K/uL Monocytes # (Auto) 1.34 K/uL Eosinophils # (Auto) 0.24 K/uL Basophils # (Auto) 0.04 K/uL RDW Standard Deviation 40.6 fL RDW Coefficient of Variation 13.1 % Immature Granulocyte % (Auto) 0.2 % Immature Granulocyte # (Auto) 0.03 K/uL Sodium Level 138 mmol/L Potassium Level 4.1 mmol/L Chloride Level 103 mmol/L Carbon Dioxide Level 26 mmol/L Anion Gap 9.0 mmol/L Blood Urea Nitrogen 12 mg/dl Creatinine 1.10 mg/dl Est Creatinine Clear Calc Drug Dose 128.6 ml/min Estimated GFR () 90.9 Estimated GFR (Non- 78.4 BUN/Creatinine Ratio 11.2 Random Glucose 94 mg/dl Calcium Level 8.3 mg/dl Magnesium Level 2.2 mg/dl Vancomycin Level Trough 26.6 mcg/ml 17.1 mcg/ml Patient Name: MIKA HORTON Unit Number: [id number] Dictated: 10/25/16742 Transcribed: 10/25/16742 MS Printed Date/Time: [~ rep prt dt]/[~ rep prt tm] [~ rep ct labl] - [~ rep ct ivnm] [facility] [place] [address] Dictated: 10/25/1643 Transcribed: 10/25/1643 MS Printed Date/Time: [~ rep prt dt]/[~ rep prt tm] [~ rep ct labl] - [~ rep ct ivnm] LEFT TIBIA/FIBULA 2 VIEWS ROUTINE CLINICAL HISTORY: LLE CELLULITIS, TRAUMA pain COMPARISON: None. DISCUSSION: Diffuse soft tissue edematous change about the lower leg. Postoperative changes involving the knee consistent with an anterior cruciate ligament repair. Ankle mortise is aligned anatomically. No abnormal periosteal reaction. IMPRESSION: Generalized soft tissue edema. No acute bony abnormality. Electronically signed by: Justino Grover M.D. 10/25/2016 7:45 AM Dictated Date/Time: 10/25/2016 7:43 AM The status of this report is Signed. Draft = Not yet reviewed or approved by Radiologist. Signed = Reviewed and approved by Radiologist. <AttendingPhy>Woody Leslie M.D.</AttendingPhy> <FamilyPhy>No Doctor, Assigned</FamilyPhy> <PrimaryPhy>No Doctor, Assigned</PrimaryPhy> <UnitNumber> [id number]</UnitNumber> <VisitNumber>[id number]</VisitNumber> <PatientName> MIKA HORTON</PatientName> <DateOfBirth>1965</DateOfBirth> <Location>[facility] </Location> <ServiceDate>10/25/16</ServiceDate> <MNE>ESINDI</MNE> <OrderingPhy> Woody Leslie M.D.</OrderingPhy> <OrderingPhyMNE>f rep ord dr santizo</ OrderingPhyMNE> <DictatingPhyMNE>f rep dict dr santizo</DictatingPhyMNE> <CCListMNE> f rep ct mitchele</CCListMNE> <AdmittingPhyMNE>f pt admit dr santizo</AdmittingPhyMNE> < AttendingPhyMNE>f pt attend dr santizo</AttendingPhyMNE> <ConsultingPhyMNE>f pt consult dr santizo</ConsultingPhyMNE> <FamilyPhyMNE>f pt fam dr santizo</FamilyPhyMNE> <OtherPhyMNE>f pt other dr santizo</OtherPhyMNE> < PrimaryPhyMNE>f pt prim care dr santizo</PrimaryPhyMNE> <ReferringPhyMNE>f pt referring dr santizo</ReferringPhyMNE> Assessment & Plan Necrotic left leg wound with possible abscess formation in patient with mixed cryoglobulinemia with cellulitis of the left lower leg. May not be responding well to vancomycin because of body weight and poor circulation. I have changed the patient to IV ceftaroline, and will adjust this once further cultures are available. Await MRI scan and need for further surgery. Will follow.
--- NOTE | 2016-10-26 19:02 | DIAGNOSTIC IMAGING REPORT ---
MRI THE LEFT LOWER LEG WITHOUT A WITH GADOLINIUM CLINICAL HISTORY: Cellulitis. Possible abscess. COMPARISON STUDY: Conventional radiographic study dated 10/25/2016 FINDINGS: Imaging was performed the sagittal, coronal, and axial planes. Images were obtained before and after the administration of 15.6 cc of intravenous Gadavist. There is diffuse cutaneous and subcutaneous edema consistent with the clinical history of a cellulitis. Within the lower anterior pretibial soft tissues, there is a rim-enhancing subcutaneous fluid collection measuring 18 x 44 x 23 mm. Given the clinical history, the findings are viewed as suspicious for an abscess. The collection is adjacent to the tibialis anterior tendon, but no signal abnormalities are visualized within the tendon itself. There is no evidence of pathologic intramuscular edema. There are no areas of marrow edema to indicate osteomyelitis.. IMPRESSION: 1. Diffuse cutaneous and subcutaneous edema consistent with a cellulitis 2. Rim-enhancing lower anterior pretibial fluid collection measuring 18 x 44 x 23 mm. Given the clinical history the findings are viewed as suspicious for an abscess 3. No evidence of osteomyelitis 4. No evidence of intramuscular abscess Electronically signed by: Alireza Woodson M.D. 10/26/2016 7:01 PM Dictated Date/Time: 10/26/2016 6:52 PM
[2016-10-26] MEDS: CEFTAROLINE FOSAMIL INJ 600 MG in SODIUM CHLORIDE 0.9% 250ML 250 ML IV SCH (19:52)
[2016-10-26] MEDS ORDERED: VANCOMYCIN INJ 2,000 MG in SODIUM CHLORIDE 0.9% 500ML 500 ML IV SCH (20:00)
[2016-10-26 23:18] VITALS: BP 117/76; PULSE 81; TEMP 36.9; O2SAT 96
[2016-10-27] VITALS (9 sets, daily range): BP systolic 109–150; BP diastolic 73–91; PULSE 69–82; TEMP 36.5–36.6; O2SAT 93–99
[2016-10-27] MEDS: MoRPHine SULFATE 4 MG/ML 1 ML CARP\\VIAL IV PRN ×3 (04:06→19:59)
[2016-10-27 05:31] LABS: BASO % 0.5 %; BASO ABS # 0.06 K/uL (0-0.2); COMPLETE YES; EOS % 1.7 %; HEMATOCRIT 37.1 % (42-52); IG% 0.3 %; LYMPH % 8.5 %; LYMPH ABS # 0.95 K/uL (1.2-3.4); MEAN CELL VOLUME 84.3 fL (80-100); MEAN CORPUSCULAR HEMOGLOBIN 29.5 pg (25-34); MEAN PLATELET VOLUME 9.6 fL (7.4-10.4); MONO % 12.4 %; NEUT % 76.6 %; PLATELET COUNT 248 K/uL (130-400); WHITE BLOOD COUNT 11.23 K/uL (4.8-10.8)
[2016-10-27 06:09] LABS: BUN/CREATININE RATIO 10.2 (10-20); CALCIUM 8.1 mg/dl (8.5-10.1); CREATININE 1.2 mg/dl (0.60-1.40); MAGNESIUM 2.1 mg/dl (1.8-2.4); POTASSIUM 4.2 mmol/L (3.5-5.1)
[2016-10-27] MEDS ORDERED: LIDOCAINE HCL 2% 2 ML VIAL (20MG/ML) ONE (06:51)
[2016-10-27] MEDS ORDERED: PROPOFOL IV EMULSION 10 MG/ML 20 ML VIAL IV ONE (06:51)
[2016-10-27] MEDS ORDERED: MIDAZOLAM HCL 1 MG/ML 2ML VIAL ONE (06:51)
[2016-10-27] MEDS ORDERED: ONDANSETRON INJ 2 MG/ML 2 ML VIAL ONE ×2 (06:51→07:50)
[2016-10-27] MEDS ORDERED: FENTANYL CITRATE INJ 50 MCG/1 ML 2 ML VIAL ONE ×2 (06:54→07:50)
[2016-10-27] MEDS ORDERED: BUPIVACAINE 0.5 % 5 MG/1 ML MPF 30ML VIAL ONE (07:13)
[2016-10-27] MEDS ORDERED: BACITRACIN 50000 UNIT VIAL ONE (07:13)
[2016-10-27] MEDS ORDERED: EpHEDrine SULFATE INJ 50 MG/ML AMP IV PRN (07:30)
[2016-10-27] MEDS ORDERED: FENTANYL CITRATE INJ 50 MCG/1 ML 2 ML VIAL IV PRN (07:30)
[2016-10-27] MEDS ORDERED: ATROPINE SULFATE 0.1 MG/ML 5ML SYR IV PRN (07:30)
[2016-10-27] MEDS ORDERED: ONDANSETRON INJ 2 MG/ML 2 ML VIAL IV PRN (07:30)
[2016-10-27] MEDS ORDERED: MoRPHine SULFATE 10 MG/ML CARP/VIAL IV PRN (07:30)
[2016-10-27] MEDS ORDERED: HYDROmorphone HCL 2 MG/ML **ORM CHARTING ONLY ONE (07:31)
[2016-10-27] MEDS ORDERED: KETOROLAC 30 MG/ML **ORM CHARTING ONLY ONE (07:31)
[2016-10-27] MEDS ORDERED: LIDOCAINE 2% 20 MG/ML SYRINGE***ORM CHARTING ONLY IV ONE (07:31)
[2016-10-27] MEDS ORDERED: ATROPINE SULFATE 0.1 MG/ML 5ML SYR IV ONE (07:31)
[2016-10-27] MEDS ORDERED: LABETALOL HCL IV **ORM CHARTING ONLY IV ONE (07:31)
[2016-10-27] MEDS ORDERED: SODIUM CHLORIDE 0.9% 10ML **ORM CHARTING ONLY ONE (07:31)
[2016-10-27] MEDS ORDERED: DROPERIDOL 2.5 MG/ML 2**ORM CHARTING ONLY ONE (07:31)
[2016-10-27] MEDS ORDERED: MoRPHine SULFATE 10 MG/ML **ORM CHARTING ONLY ONE (07:31)
[2016-10-27] MEDS ORDERED: MEPERIDINE HCL 50 MG/ML CARP**ORM CHARTING ONLY ONE (07:31)
[2016-10-27] MEDS ORDERED: EpHEDrine SULFATE INJ 50 MG/ML **ORM CHARTING ONLY ONE (07:31)
[2016-10-27] MEDS ORDERED: METOCLOPRAMIDE HCL INJ **ORM CHARTING ONLY ONE (07:31)
[2016-10-27] MEDS ORDERED: HydrALAZINE HCL **ORM CHARTING ONLY ONE (07:31)
[2016-10-27] MEDS ORDERED: ONDANSETRON INJ 2 MG/ML **ORM CHARTING ONLY ONE (07:31)
[2016-10-27] MEDS ORDERED: NALOXONE HCL 0.4 MG/1 ML **ORM CHARTING ONLY ONE (07:31)
[2016-10-27] MEDS ORDERED: FENTANYL CITRATE INJ 50 MCG**ORM CHARTING ONLY ONE (07:31)
[2016-10-27] MEDS ORDERED: MIDAZOLAM HCL 1 MG/ML 2ML**ORM CHARTING ONLY ONE (07:31)
--- NOTE | 2016-10-27 07:31 | Orthopedic Progress Note ---
Orthopedic Progress Note Date of Service Oct 27, 2016. Subjective Post OP Day: Objective calves soft nontender, N/V intact fluctuant area over anterior tibia Date Time Temp Pulse Resp B/P Pulse Ox O2 Delivery O2 Flow Rate FiO2 10/27/16 06:58 36.6 72 16 134/85 95 Room Air 10/26/16 23:20 Room Air 10/26/16 23:18 36.9 81 18 117/76 96 Room Air 10/26/16 15:16 36.8 98 16 127/82 97 Nasal Cannula 10/26/16 15:15 97 Room Air 10/26/16 07:55 Room Air 10/26/16 07:35 36.8 78 16 138/84 98 Room Air Laboratory Results 24 Hours: Test 10/27/16 05:00 White Blood Count 11.23 K/uL Red Blood Count 4.40 M/uL Hemoglobin 13.0 g/dL Hematocrit 37.1 % Mean Corpuscular Volume 84.3 fL Mean Corpuscular Hemoglobin 29.5 pg Mean Corpuscular Hemoglobin Concent 35.0 g/dl Platelet Count 248 K/uL Mean Platelet Volume 9.6 fL Neutrophils (%) (Auto) 76.6 % Lymphocytes (%) (Auto) 8.5 % Monocytes (%) (Auto) 12.4 % Eosinophils (%) (Auto) 1.7 % Basophils (%) (Auto) 0.5 % Neutrophils # (Auto) 8.61 K/uL Lymphocytes # (Auto) 0.95 K/uL Monocytes # (Auto) 1.39 K/uL Eosinophils # (Auto) 0.19 K/uL Basophils # (Auto) 0.06 K/uL Assessment & Plan Assessment: LLE cellulits Plan: area has not seemed to improve over the last 24 hours on Abx, will proceed with MRI to eval for abscess/early tenosynovitis. will cont Abx today, have NPO for possible I&D tomorrow. will consult ID to discuss best Abx coverage. (1) Abscess of left lower extremity Acute (2) Cellulitis of left lower extremity Acute Assessment & Plan: Regarding his Cellulitis of the LLE. There does not appear to be much change from admission with reviewing previous notes and discussion with the patient. Case was discussed with Dr Bay and it was decided to continue Vancomycin but to D/C rocephin. I will get the patient started on Imipenem 500 mg Q 6 hours until we get initial culture results. Further antibiotic coverage to be determined by culture results and/or clinical response. MRI shows anterior fluid collection . will take to OR for I and D. R/b discussed, consent obtianed Discharge Planning Discharge Planning: home
[2016-10-27] MEDS: CEFTAROLINE FOSAMIL INJ 600 MG in SODIUM CHLORIDE 0.9% 250ML 250 ML IV SCH ×2 (08:00→19:56)
--- NOTE | 2016-10-27 08:12 | [facility] Post Operative Brief Note ---
Immediate Operative Summary Operative Date Oct 27, 2016. Pre-Operative Diagnosis Left lower extremity cellulitis Post-Operative Diagnosis Same as pre-operative Procedure(s) Performed Irrigation and debridement of left lower extremity Surgeon Dr. Stack Sql Ssrs Developer Surgeon(s) CASSIE Covington Estimated Blood Loss None per surgeon Findings gross pus Specimens Culture 1.Left lower extremity culture Anesthesia gen Complication(s) None Disposition Recovery Room / PACU
[2016-10-27] MEDS: HYDROCODONE/ACETAMOPHEN 5/325MG TAB PO PRN ×3 (09:26→23:18)
[2016-10-27] MEDS: NSS + 20MEQ KCL 1000ML 1,000 ML IV SCH ×2 (10:07→19:56)
--- NOTE | 2016-10-27 10:19 | Anesthesiology Progress Note ---
Anesthesia Post Op Note Date & Time Oct 27, 2016 at 10:19 Vital Signs Pain Intensity: 4.0 Vital Signs Past 12 Hours Date Time Temp Pulse Resp B/P Pulse Ox O2 Delivery O2 Flow Rate FiO2 10/27/16 09:45 36.5 82 18 125/76 99 Nasal Cannula 2.0 10/27/16 09:15 98 Nasal Cannula 2.0 10/27/16 09:15 98 Nasal Cannula 2.0 10/27/16 09:10 36.5 77 18 111/73 100 Nasal Cannula 2 10/27/16 09:00 72 18 110/76 100 Mask 10 10/27/16 08:50 77 18 125/82 100 Mask 10 10/27/16 08:40 79 20 118/73 100 Mask 10 10/27/16 08:33 37.2 78 20 128/67 100 Mask 10 10/27/16 06:58 36.6 72 16 134/85 95 Room Air 10/26/16 23:20 Room Air 10/26/16 23:18 36.9 81 18 117/76 96 Room Air Notes Mental Status: alert / awake / arousable, participated in evaluation Pt Amnestic to Procedure: Yes Nausea / Vomiting: adequately controlled Pain: adequately controlled Airway Patency, RR, SpO2: stable & adequate BP & HR: stable & adequate Hydration State: stable & adequate Anesthetic Complications: no major complications apparent
--- NOTE | 2016-10-27 13:25 | PROGRESS NOTE ---
DATE: 10/27/2016 PROBLEM LIST: Includes abscess, left lower extremity and cellulitis, left lower extremity. SUBJECTIVE: The patient reports that he is feeling better today. He was down to the OR and had the area opened up and debrided. He states that he can tell the difference in that there is less pressure when he stands up to go to the restroom. This was done by Dr. Stack. At this time, the patient is doing much, much better as well. He denies any other concerns or problems at this time. He is not having any chest pain. He is not having any chest heaviness. He is not having any palpitations. He is not having any breathing difficulties. No cough, no wheeze, no increased shortness of breath, no chest heaviness or tightness. He has not had any fever or chills that he is aware of. No sweats that he is aware of. He has not had any headache or lightheadedness. No dizziness. He denies any nausea or vomiting. He denies any difficulty with his bowels. He states that he is passing urine. He states his bowels have not moved for about 2 days now but he is passing air. He has no abdominal pain or pressure. He states that he is voiding well. He is not having any difficulty with voiding. He denies any other concerns or problems at this time. OBJECTIVE: GENERAL: The patient is a 51-year-old male in no acute distress. He is alert and oriented x3. Mood is good. Affect is good. VITAL SIGNS: Temp 36.5, pulse 77, respirations 16, blood pressure 150/91, pulse ox 95% on room air. HEENT: Normocephalic, atraumatic. Pupils equal, round and reactive to light and accommodation. Extraocular movements are intact. [place] moist gingival and buccal mucosa. NECK: Supple. No mass. No adenopathy. No bruit. CHEST: Diminished but clear. There is no wheeze, rale or rhonchi. He has good air movement throughout. CARDIOVASCULAR: Regular rate and rhythm. No murmurs, gallops or rubs noted. ABDOMEN: Soft, nontender. No guarding, rigidity or organomegaly. EXTREMITIES: There is no erythema or edema. The patient has left leg covered and dressed. Right leg: No erythema or edema noted. NEUROLOGIC: Cranial nerves II-XII are intact. No focal deficits noted. LABORATORY DATA: Shows white count down to 11,000, H\T\H 13.0 and 37.1, platelet count 248,000. Sodium 136, potassium 4.2, chloride 101, CO2 28, anion gap 7, BUN 12, creatinine 1.2. MRI done yesterday afternoon does show a pretibial fluid collection which measures 1.8 x 4.4 x 2.3 cm. IMPRESSION: 1. Left lower extremity abscess. This was debrided this morning by Dr. Stack. The patient tolerated the procedure well. At this point, wait for culture results to refine antibiotic choice if necessary. Until then, we will continue on current antibiotic recommended by infectious disease. 2. Left lower extremity cellulitis, same as #1. Await culture results and clinical response to antibiotic. Will continue hospitalization due to IV medications. SYBIL
--- NOTE | 2016-10-27 14:01 | Progress Note ---
Progress Note Date of Service Oct 27, 2016. Progress Note PA Physician Supervision Note: I interviewed and examined the patient. Discussed with Keith Walker PAC and agree with findings and plan as documented in the note. Any exceptions or clarifications are listed here: None Pt here with lower leg cellulitis with concern for a deep tissue infection, ortho MRI suggested abscess and went to OR 10/27 for clean out vss leg is improved but has post op dressing in place Id has changed to Ceftaroline Documented By: [place]
[2016-10-27] MEDS ORDERED: VANCOMYCIN TROUGH ONE (17:30)
--- NOTE | 2016-10-27 20:49 | Infectious Disease Progress Nt ---
Progress Note Date of Service Oct 27, 2016. Subjective Pt evaluation today including: conversation w/ patient, physical exam, chart review, lab review, review of studies, conversation w/ spa consultant, review of inpatient medication list MRI confirmed the presence of an abscess, patient now status post incision and drainage with debridement of the collection. Operative cultures pending, Gram stain is negative. Currently afebrile. Continues to tolerate antibiotic without apparent difficulty. All Other Systems: Reviewed and Negative Medications Current Inpatient Medications Medications (Trade) Dose Ordered Sig/Te Route Start Time Stop Time Status Last Admin Dose Admin Acetaminophen (Tylenol Tab) 650 mg Q4H PRN PO 10/25/16 04:15 11/24/16 04:14 Diphenhydramine HCl 25 mg 25 mg Q4H PRN IV 10/25/16 04:15 11/24/16 04:14 Promethazine HCl/ Sodium Chloride (Phenergan Inj/ Nss 50ml) 50.5 ml @ 202 mls/hr Q4H PRN IV 10/25/16 04:15 11/24/16 04:14 Zolpidem Tartrate (Ambien Tab) 5 mg HSZ PRN PO 10/25/16 04:15 11/24/16 04:14 Ondansetron HCl (Zofran Inj) 4 mg Q6H PRN IV 10/25/16 04:15 11/24/16 04:14 Morphine Sulfate (MoRPHine SULFATE INJ) 2 mg Q2H PRN IV 10/25/16 04:15 11/08/16 04:14 Morphine Sulfate 4 mg 4 mg Q2H PRN IV 10/25/16 04:15 11/08/16 04:14 10/27/16 19:59 4 MG Potassium Chloride/Sodium Chloride 1,000 ml @ 100 mls/hr Q10H IV 10/25/16 08:00 11/24/16 04:11 10/27/16 19:56 100 MLS/HR Acetaminophen 100 ml @ 400 mls/hr Q8H PRN IV 10/25/16 04:15 11/24/16 04:14 Lorazepam 0.5 mg/ Syringe 1 ml @ 1 mls/min Q4H PRN IV 10/25/16 08:00 11/24/16 07:59 Ceftaroline Fosamil/Sodium Chloride (Teflaro Inj/Nss 250ml) 270 ml @ 250 mls/hr Q12@0800,1999 IV 10/26/16 20:00 11/05/16 19:59 10/27/16 19:56 250 MLS/HR Acetaminophen/ Hydrocodone Bitart ([place] 5/325 Tab) 1-2 TABS FOR PAIN 1 TABLET ... Q6H PRN PO 10/27/16 08:15 11/10/16 08:14 10/27/16 15:19 2 TAB Objective Vital Signs Date Time Temp Pulse Resp B/P Pulse Ox O2 Delivery O2 Flow Rate FiO2 10/27/16 19:58 36.5 78 16 119/78 95 Room Air 10/27/16 15:20 36.6 81 16 113/77 94 Room Air 10/27/16 15:15 Room Air 10/27/16 12:11 77 16 150/91 95 Room Air 10/27/16 11:16 76 16 111/74 93 Room Air 10/27/16 10:15 77 16 131/86 96 Room Air 10/27/16 09:45 36.5 82 18 125/76 99 Nasal Cannula 2.0 10/27/16 09:15 98 Nasal Cannula 2.0 10/27/16 09:15 36.6 72 16 121/75 98 Nasal Cannula 2.0 10/27/16 09:15 98 Nasal Cannula 2.0 10/27/16 09:10 36.5 77 18 111/73 100 Nasal Cannula 2 10/27/16 09:00 72 18 110/76 100 Mask 10 10/27/16 08:50 77 18 125/82 100 Mask 10 10/27/16 08:40 79 20 118/73 100 Mask 10 10/27/16 08:33 37.2 78 20 128/67 100 Mask 10 10/27/16 06:58 36.6 72 16 134/85 95 Room Air 10/26/16 23:20 Room Air 10/26/16 23:18 36.9 81 18 117/76 96 Room Air Physical Exam General Appearance: WD/WN, no apparent distress Eyes: normal inspection, EOMI, sclerae normal ENT: normal ENT inspection, hearing grossly normal, pharynx normal Neck: supple, no adenopathy, trachea midline Respiratory/Chest: lungs clear, normal breath sounds, no respiratory distress Cardiovascular: regular rate, rhythm, no gallop, no murmur Abdomen: normal bowel sounds, non tender, soft, no organomegaly Extremities: normal capillary refill, + inflammation, + swelling Neurologic/Psychiatric: alert, oriented x 3 Skin: normal color, no rash, + pertinent finding (surgical dressing intact. No worsening cellulitis) Lymphatic: no adenopathy Laboratory Results RUN DATE: 10/27/16 [facility] LAB PAGE 1 RUN TIME: 7597 Specimen Inquiry PATIENT: MIKA HORTON LOC: [facility] U # : [id number] AGE/SX: 51/M ROOM: [facility] REG : 10/25/[address]: Woody Leslie M.D : 1965 BED: 1 DIS : STATUS: ADM IN TLOC: SPEC #: [id number] DAMON: 10/27/16 STATUS: RES REQ #: [id number] RECD: 10/27/[address]: Woody Leslie M.D. SOURCE: CELLULITIS ENTR: 10/27/[address] [facility] [address]: Andrae Sparks MD [facility]: El Kimble, D.OSienna Cross Doctor, Assigned ORDERED: AER/NURY CULTSMR Procedure Result Verified Site GRAM STAIN Final 10/27/16-113 RESULT MODERATE WBCs SEEN NO ORGANISMS SEEN OR AER/NURY CULT Results Pending Last 24 Hours Test 10/27/16 05:00 White Blood Count 11.23 K/uL Red Blood Count 4.40 M/uL Hemoglobin 13.0 g/dL Hematocrit 37.1 % Mean Corpuscular Volume 84.3 fL Mean Corpuscular Hemoglobin 29.5 pg Mean Corpuscular Hemoglobin Concent 35.0 g/dl Platelet Count 248 K/uL Mean Platelet Volume 9.6 fL Neutrophils (%) (Auto) 76.6 % Lymphocytes (%) (Auto) 8.5 % Monocytes (%) (Auto) 12.4 % Eosinophils (%) (Auto) 1.7 % Basophils (%) (Auto) 0.5 % Neutrophils # (Auto) 8.61 K/uL Lymphocytes # (Auto) 0.95 K/uL Monocytes # (Auto) 1.39 K/uL Eosinophils # (Auto) 0.19 K/uL Basophils # (Auto) 0.06 K/uL RDW Standard Deviation 39.5 fL RDW Coefficient of Variation 12.9 % Immature Granulocyte % (Auto) 0.3 % Immature Granulocyte # (Auto) 0.03 K/uL Sodium Level 136 mmol/L Potassium Level 4.2 mmol/L Chloride Level 101 mmol/L Carbon Dioxide Level 28 mmol/L Anion Gap 7.0 mmol/L Blood Urea Nitrogen 12 mg/dl Creatinine 1.20 mg/dl Est Creatinine Clear Calc Drug Dose 117.9 ml/min Estimated GFR () 81.8 Estimated GFR (Non- 70.6 BUN/Creatinine Ratio 10.2 Random Glucose 100 mg/dl Calcium Level 8.1 mg/dl Magnesium Level 2.1 mg/dl MRI THE LEFT LOWER LEG WITHOUT A WITH GADOLINIUM CLINICAL HISTORY: Cellulitis. Possible abscess. COMPARISON STUDY: Conventional radiographic study dated 10/25/2016 FINDINGS: Imaging was performed the sagittal, coronal, and axial planes. Images were obtained before and after the administration of 15.6 cc of intravenous Gadavist. There is diffuse cutaneous and subcutaneous edema consistent with the clinical history of a cellulitis. Within the lower anterior pretibial soft tissues, there is a rim-enhancing subcutaneous fluid collection measuring 18 x 44 x 23 mm. Given the clinical history, the findings are viewed as suspicious for an abscess. The collection is adjacent to the tibialis anterior tendon, but no signal abnormalities are visualized within the tendon itself. There is no evidence of pathologic intramuscular edema. There are no areas of marrow edema to indicate osteomyelitis.. IMPRESSION: 1. Diffuse cutaneous and subcutaneous edema consistent with a cellulitis 2. Rim-enhancing lower anterior pretibial fluid collection measuring 18 x 44 x 23 mm. Given the clinical history the findings are viewed as suspicious for an abscess 3. No evidence of osteomyelitis 4. No evidence of intramuscular abscess Electronically signed by: Alireza Woodson M.D. 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 Now s/p I+D. Continue on ceftaroline pending operative culture results.
[2016-10-28 03:17] VITALS: BP 116/75; PULSE 81; TEMP 36.5; O2SAT 95
[2016-10-28] MEDS: NSS + 20MEQ KCL 1000ML 1,000 ML IV SCH ×2 (05:34→15:53)
[2016-10-28] MEDS: HYDROCODONE/ACETAMOPHEN 5/325MG TAB PO PRN ×3 (07:05→21:18)
--- NOTE | 2016-10-28 07:47 | OPERATIVE REPORT ---
DATE OF OPERATION: 10/27/2016 PREOPERATIVE DIAGNOSIS: Left leg abscess, deep. SURGEON: Dr. Stack. KOHINOOR OPERATOR: CATHERINE Taylor. INDICATIONS: This is a 51-year-old gentleman with progressive pain and swelling in the left leg status post trauma and MRI. He presents with concern for abscess. The risks and benefits have been discussed including, but not limited to, risk of infection, nerve injury, stiffness, loss of motion, failure to improve, etc. The patient is agreeable and wishes to proceed. He has failed conservative treatment. DESCRIPTION OF OPERATION: I made a longitudinal incision directly over the area, pointing over the anterior tibia and the distal two-third. Dissection was carried down through the skin and subcutaneous tissues. Fluid and gross pus was encountered, consistent with abscess. I performed a debridement of skin, subcutaneous tissue and fascia. The abscess did extend deep down into the fascial layer. There was also some evidence of liquified fat in the area. This was removed as well. The area was copiously irrigated with 3 liters of bacitracin impregnated normal saline. The incision was closed with 3-0 nylon in a mattress fashion. Packing was applied and a soft dressing was applied. The patient was sent to the PACU in a stable condition. I attest to the content of the Intraoperative Record and any orders documented therein. Any exceptio ns are noted below.
[2016-10-28 08:04] VITALS: BP 120/60; PULSE 71; TEMP 36.6; O2SAT 96
[2016-10-28] MEDS: CEFTAROLINE FOSAMIL INJ 600 MG in SODIUM CHLORIDE 0.9% 250ML 250 ML IV SCH ×2 (08:16→19:42)
[2016-10-28 10:03] VITALS: O2SAT 96
--- NOTE | 2016-10-28 10:39 | Hospitalist Progress Note ---
Hospitalist Progress Note Date of Service Oct 28, 2016. Subjective Pt evaluation today including: conversation w/ patient, physical exam, chart review, lab review, review of studies, review of inpatient medication list Patient had no acute issues overnight Patient states pain is 3/10 and tolerable with pain medication Denies any fevers or chills Constitutional: No chills, No fever Eyes: No worsening of vision ENT: No hearing loss, No nasal symptoms, No sore throat Respiratory: No cough, No shortness of breath, No sputum Cardiovascular: No chest pain Abdomen: No constipation, No pain, No vomiting Musculoskeletal: No joint pain Male : No dysuria Neurologic: No memory loss Psychiatric: No depression symptoms Endo: No fatigue Medications Current Inpatient Medications Medications (Trade) Dose Ordered Sig/Te Route Start Time Stop Time Status Last Admin Dose Admin Acetaminophen (Tylenol Tab) 650 mg Q4H PRN PO 10/25/16 04:15 11/24/16 04:14 Diphenhydramine HCl 25 mg 25 mg Q4H PRN IV 10/25/16 04:15 11/24/16 04:14 Promethazine HCl/ Sodium Chloride (Phenergan Inj/ Nss 50ml) 50.5 ml @ 202 mls/hr Q4H PRN IV 10/25/16 04:15 11/24/16 04:14 Zolpidem Tartrate (Ambien Tab) 5 mg HSZ PRN PO 10/25/16 04:15 11/24/16 04:14 Ondansetron HCl (Zofran Inj) 4 mg Q6H PRN IV 10/25/16 04:15 11/24/16 04:14 Morphine Sulfate (MoRPHine SULFATE INJ) 2 mg Q2H PRN IV 10/25/16 04:15 11/08/16 04:14 Morphine Sulfate 4 mg 4 mg Q2H PRN IV 10/25/16 04:15 11/08/16 04:14 10/27/16 19:59 4 MG Potassium Chloride/Sodium Chloride 1,000 ml @ 100 mls/hr Q10H IV 10/25/16 08:00 11/24/16 04:11 10/28/16 05:34 100 MLS/HR Acetaminophen 100 ml @ 400 mls/hr Q8H PRN IV 10/25/16 04:15 11/24/16 04:14 Lorazepam 0.5 mg/ Syringe 1 ml @ 1 mls/min Q4H PRN IV 10/25/16 08:00 11/24/16 07:59 Ceftaroline Fosamil/Sodium Chloride (Teflaro Inj/Nss 250ml) 270 ml @ 250 mls/hr Q12@0800,2000 IV 10/26/16 20:00 11/05/16 19:59 10/28/16 08:16 250 MLS/HR Acetaminophen/ Hydrocodone Bitart ([place] 5/325 Tab) 1-2 TABS FOR PAIN 1 TABLET ... Q6H PRN PO 10/27/16 08:15 11/10/16 08:14 10/28/16 07:05 2 TAB Objective Vital Signs Date Time Temp Pulse Resp B/P Pulse Ox O2 Delivery O2 Flow Rate FiO2 10/28/16 10:03 96 Room Air 10/28/16 08:04 36.6 71 15 120/60 96 Room Air 10/28/16 07:44 Room Air 10/28/16 03:17 36.5 81 16 116/75 95 Room Air 10/27/16 23:15 Room Air 10/27/16 22:56 36.6 69 16 109/73 97 Room Air 10/27/16 19:58 36.5 78 16 119/78 95 Room Air 10/27/16 15:20 36.6 81 16 113/77 94 Room Air 10/27/16 15:15 Room Air 10/27/16 12:11 77 16 150/91 95 Room Air 10/27/16 11:16 76 16 111/74 93 Room Air Physical Exam General Appearance: WD/WN, no apparent distress Eyes: normal inspection ENT: normal ENT inspection Neck: supple, no adenopathy Respiratory/Chest: chest non-tender Cardiovascular: regular rate, rhythm, no edema Abdomen: normal bowel sounds, non tender, soft Extremities: normal range of motion, non-tender 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 Morbid Obesity - nutrition consultation PPX- lovenox
--- NOTE | 2016-10-28 14:10 | Infectious Disease Progress Nt ---
Progress Note Date of Service Oct 28, 2016. Subjective Pt evaluation today including: conversation w/ patient, physical exam, chart review, lab review, review of studies, conversation w/ fundraising consultant, review of inpatient medication list Patient offers no new complaints today. Now status post incision and drainage of purulent collection of leg. Pain 3/10. Remains afebrile. Tolerating antibiotic without apparent difficulty.Operative Gram stain negative, culture pending. All Other Systems: Reviewed and Negative Medications Current Inpatient Medications Medications (Trade) Dose Ordered Sig/Te Route Start Time Stop Time Status Last Admin Dose Admin Acetaminophen (Tylenol Tab) 650 mg Q4H PRN PO 10/25/16 04:15 11/24/16 04:14 Diphenhydramine HCl 25 mg 25 mg Q4H PRN IV 10/25/16 04:15 11/24/16 04:14 Promethazine HCl/ Sodium Chloride (Phenergan Inj/ Nss 50ml) 50.5 ml @ 202 mls/hr Q4H PRN IV 10/25/16 04:15 11/24/16 04:14 Zolpidem Tartrate (Ambien Tab) 5 mg HSZ PRN PO 10/25/16 04:15 11/24/16 04:14 Ondansetron HCl (Zofran Inj) 4 mg Q6H PRN IV 10/25/16 04:15 11/24/16 04:14 Morphine Sulfate (MoRPHine SULFATE INJ) 2 mg Q2H PRN IV 10/25/16 04:15 11/08/16 04:14 Morphine Sulfate 4 mg 4 mg Q2H PRN IV 10/25/16 04:15 11/08/16 04:14 10/27/16 19:59 4 MG Potassium Chloride/Sodium Chloride 1,000 ml @ 100 mls/hr Q10H IV 10/25/16 08:00 11/24/16 04:11 10/28/16 05:34 100 MLS/HR Acetaminophen 100 ml @ 400 mls/hr Q8H PRN IV 10/25/16 04:15 11/24/16 04:14 Lorazepam 0.5 mg/ Syringe 1 ml @ 1 mls/min Q4H PRN IV 10/25/16 08:00 11/24/16 07:59 Ceftaroline Fosamil/Sodium Chloride (Teflaro Inj/Nss 250ml) 270 ml @ 250 mls/hr Q12@0800,1999 IV 10/26/16 20:00 11/05/16 19:59 10/28/16 08:16 250 MLS/HR Acetaminophen/ Hydrocodone Bitart ([place] 5/325 Tab) 1-2 TABS FOR PAIN 1 TABLET ... Q6H PRN PO 10/27/16 08:15 11/10/16 08:14 10/28/16 07:05 2 TAB Objective Vital Signs Date Time Temp Pulse Resp B/P Pulse Ox O2 Delivery O2 Flow Rate FiO2 10/28/16 10:03 96 Room Air 10/28/16 08:04 36.6 71 15 120/60 96 Room Air 10/28/16 07:44 Room Air 10/28/16 03:17 36.5 81 16 116/75 95 Room Air 10/27/16 23:15 Room Air 10/27/16 22:56 36.6 69 16 109/73 97 Room Air 10/27/16 19:58 36.5 78 16 119/78 95 Room Air 10/27/16 15:20 36.6 81 16 113/77 94 Room Air 10/27/16 15:15 Room Air Physical Exam General Appearance: WD/WN, no apparent distress Eyes: normal inspection, EOMI, sclerae normal, funduscopic exam normal ENT: normal ENT inspection, pharynx normal Neck: supple, no adenopathy, trachea midline Respiratory/Chest: lungs clear, normal breath sounds, no respiratory distress Cardiovascular: regular rate, rhythm, no gallop, no murmur Abdomen: normal bowel sounds, non tender, soft, no organomegaly Extremities: + inflammation, + swelling Neurologic/Psychiatric: alert, oriented x 3 Skin: normal color, no rash, + pertinent finding (Surgical dressing intact) Lymphatic: no adenopathy Laboratory Results RUN DATE: 10/28/16 [facility] LAB PAGE 1 RUN TIME: 1145 Specimen Inquiry PATIENT: MIKA HORTON LOC: [facility] U # : [id number] AGE/SX: 51/M ROOM: [facility] REG : 10/25/[address]: Woody Leslie M.D : 1965 BED: 1 DIS : STATUS: ADM IN TLOC: SPEC #: [id number] DAMON: 10/27/16 STATUS: RES REQ #: [id number] RECD: 10/27/[address]: Woody Leslie M.D. SOURCE: CELLULITIS ENTR: 10/27/[address]: Andrae Sparks MD [facility]: El Kimble, D.O. No Doctor, Assigned ORDERED: AER/NURY CULTSMR Procedure Result Verified Site GRAM STAIN Final 10/27/16-1137 RESULT MODERATE WBCs SEEN NO ORGANISMS SEEN OR AER/NURY CULT Preliminary 10/28/16-1145 NO GROWTH TO DATE. Last 24 Hours Test 10/28/16 05:15 Hepatitis C Antibody NEG [~ rep ct add3]] MRI THE LEFT LOWER LEG WITHOUT A WITH GADOLINIUM CLINICAL HISTORY: Cellulitis. Possible abscess. COMPARISON STUDY: Conventional radiographic study dated 10/25/2016 FINDINGS: Imaging was performed the sagittal, coronal, and axial planes. Images were obtained before and after the administration of 15.6 cc of intravenous Gadavist. There is diffuse cutaneous and subcutaneous edema consistent with the clinical history of a cellulitis. Within the lower anterior pretibial soft tissues, there is a rim-enhancing subcutaneous fluid collection measuring 18 x 44 x 23 mm. Given the clinical history, the findings are viewed as suspicious for an abscess. The collection is adjacent to the tibialis anterior tendon, but no signal abnormalities are visualized within the tendon itself. There is no evidence of pathologic intramuscular edema. There are no areas of marrow edema to indicate osteomyelitis.. IMPRESSION: 1. Diffuse cutaneous and subcutaneous edema consistent with a cellulitis 2. Rim-enhancing lower anterior pretibial fluid collection measuring 18 x 44 x 23 mm. Given the clinical history the findings are viewed as suspicious for an abscess 3. No evidence of osteomyelitis 4. No evidence of intramuscular abscess Electronically signed by: Alireza Woodson M.D. 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 Now s/p I+D. Continue on ceftaroline pending operative culture results.
[2016-10-28 15:49] VITALS: BP 115/74; PULSE 65; TEMP 36.9; O2SAT 96
--- NOTE | 2016-10-28 17:07 | Orthopedic Progress Note ---
Orthopedic Progress Note Date of Service Oct 28, 2016. Subjective Post OP Day: 1 Reports: feeling well, Denies: complaints Additional Notes: states it feels a bit better getting up and putting weight on it. Objective calves soft nontender, N/V intact, A&O x3, toes mobile Dressings removed. Still with moderate erythema of the lower extremity. Mild to moderate drainage on gauze but not seeping through to the nael bandage. Approx 7" of packing removed. No overt drainage when doing so. Mild serous drainage noted. Redressed. Date Time Temp Pulse Resp B/P Pulse Ox O2 Delivery O2 Flow Rate FiO2 10/28/16 15:49 36.9 65 18 115/74 96 Room Air 10/28/16 10:03 96 Room Air 10/28/16 08:04 36.6 71 15 120/60 96 Room Air 10/28/16 07:44 Room Air 10/28/16 03:17 36.5 81 16 116/75 95 Room Air 10/27/16 23:15 Room Air 10/27/16 22:56 36.6 69 16 109/73 97 Room Air 10/27/16 19:58 36.5 78 16 119/78 95 Room Air Assessment & Plan Assessment: LLE cellulits with distal anterior abscess POD 1 s/p I&D Plan: Cx NGTD Antibx as per ID Team Dressing change tomorrow with removal of packing. (1) Abscess of left lower extremity Acute (2) Cellulitis of left lower extremity Acute Inhouse Planning Pain Management: [place], Morphine, PO Tylenol Discharge Planning Discharge Planning: home
[2016-10-28 23:10] VITALS: BP 115/76; PULSE 57; TEMP 36.5; O2SAT 96
[2016-10-29] MEDS: HYDROCODONE/ACETAMOPHEN 5/325MG TAB PO PRN ×4 (03:45→23:45)
[2016-10-29 06:32] LABS: HEMATOCRIT 39.2 % (42-52); MEAN CELL VOLUME 84.1 fL (80-100); MEAN CORPUSCULAR HGB CONC 35.7 g/dl (32-36); MEAN PLATELET VOLUME 9.5 fL (7.4-10.4); PLATELET COUNT 292 K/uL (130-400); RED BLOOD COUNT 4.66 M/uL (4.7-6.1); WHITE BLOOD COUNT 7.91 K/uL (4.8-10.8)
[2016-10-29 08:01] VITALS: BP 129/85; PULSE 55; TEMP 36.5; O2SAT 96
[2016-10-29] MEDS: CEFTAROLINE FOSAMIL INJ 600 MG in SODIUM CHLORIDE 0.9% 250ML 250 ML IV SCH ×2 (08:13→21:23)
[2016-10-29 11:44] VITALS: BP 129/83; PULSE 63; TEMP 36.3; O2SAT 96
[2016-10-29 15:00] VITALS: BP 130/86; PULSE 50; TEMP 36.5; O2SAT 96
--- NOTE | 2016-10-29 16:41 | Orthopedic Progress Note ---
Orthopedic Progress Note Date of Service Oct 29, 2016. Subjective Reports: feeling well, Denies: SOB, calf pain, chest pain, light headedness, nausea / vomiting Objective calves soft nontender, N/V intact, dressing C/D/I, incision C/D/I (packing removed. minimal drainage. no purulence), A&O x3, toes mobile Date Time Temp Pulse Resp B/P Pulse Ox O2 Delivery O2 Flow Rate FiO2 10/29/16 15:00 36.5 50 16 130/86 96 Room Air 10/29/16 11:44 36.3 63 14 129/83 96 Room Air 10/29/16 10:20 Room Air 10/29/16 08:01 36.5 55 16 129/85 96 Room Air 10/29/16 07:35 Room Air 10/28/16 23:30 Room Air 10/28/16 23:10 36.5 57 16 115/76 96 Room Air Laboratory Results 24 Hours: Test 10/29/16 05:39 Hematocrit 39.2 % Hemoglobin 14.0 g/dL Additional Notes: GRAM STAIN Final 10/27/16-1137 RESULT MODERATE WBCs SEEN NO ORGANISMS SEEN OR AER/NURY CULT Preliminary 10/29/16-0957 NO GROWTH TO DATE. Assessment & Plan Assessment: LLE cellulits with distal anterior abscess POD 2 s/p I&D Plan: Cx NGTD Antibx as per ID Team DRESSING CHANGED TODAY, ALL PACKING REMOVED. PRESSURE DRESSING APPLIED. (1) Abscess of left lower extremity Acute (2) Cellulitis of left lower extremity Acute Inhouse Planning Pain Management: [place], Morphine, PO Tylenol Discharge Planning Discharge Planning: home
--- NOTE | 2016-10-29 17:01 | Infectious Disease Progress Nt ---
Progress Note Date of Service Oct 29, 2016. Subjective Pt evaluation today including: conversation w/ patient, physical exam, chart review, lab review, review of studies, conversation w/ solution consultant, review of inpatient medication list Patient offering no new complaints today. Remains afebrile. Continues tolerating his antibiotic without apparent difficulty.Cultures remain negative to date. All Other Systems: Reviewed and Negative Medications Current Inpatient Medications Medications (Trade) Dose Ordered Sig/Te Route Start Time Stop Time Status Last Admin Dose Admin Acetaminophen (Tylenol Tab) 650 mg Q4H PRN PO 10/25/16 04:15 11/24/16 04:14 10/28/16 19:42 650 MG Diphenhydramine HCl 25 mg 25 mg Q4H PRN IV 10/25/16 04:15 11/24/16 04:14 Promethazine HCl/ Sodium Chloride (Phenergan Inj/ Nss 50ml) 50.5 ml @ 202 mls/hr Q4H PRN IV 10/25/16 04:15 11/24/16 04:14 Zolpidem Tartrate (Ambien Tab) 5 mg HSZ PRN PO 10/25/16 04:15 11/24/16 04:14 Ondansetron HCl (Zofran Inj) 4 mg Q6H PRN IV 10/25/16 04:15 11/24/16 04:14 Morphine Sulfate (MoRPHine SULFATE INJ) 2 mg Q2H PRN IV 10/25/16 04:15 11/08/16 04:14 10/29/16 02:31 2 MG Morphine Sulfate 4 mg 4 mg Q2H PRN IV 10/25/16 04:15 11/08/16 04:14 10/27/16 19:59 4 MG Acetaminophen 100 ml @ 400 mls/hr Q8H PRN IV 10/25/16 04:15 11/24/16 04:14 Lorazepam 0.5 mg/ Syringe 1 ml @ 1 mls/min Q4H PRN IV 10/25/16 08:00 11/24/16 07:59 Ceftaroline Fosamil/Sodium Chloride (Teflaro Inj/Nss 250ml) 270 ml @ 250 mls/hr Q12@0800,2000 IV 10/26/16 20:00 11/05/16 19:59 10/29/16 08:13 250 MLS/HR Acetaminophen/ Hydrocodone Bitart ([place] 5/325 Tab) 1-2 TABS FOR PAIN 1 TABLET ... Q6H PRN PO 10/27/16 08:15 11/10/16 08:14 10/29/16 11:16 2 TAB Objective Vital Signs Date Time Temp Pulse Resp B/P Pulse Ox O2 Delivery O2 Flow Rate FiO2 10/29/16 15:00 36.5 50 16 130/86 96 Room Air 10/29/16 11:44 36.3 63 14 129/83 96 Room Air 10/29/16 10:20 Room Air 10/29/16 08:01 36.5 55 16 129/85 96 Room Air 10/29/16 07:35 Room Air 10/28/16 23:30 Room Air 10/28/16 23:10 36.5 57 16 115/76 96 Room Air Physical Exam General Appearance: WD/WN, no apparent distress Eyes: normal inspection, sclerae normal ENT: normal ENT inspection, pharynx normal Neck: supple, no adenopathy, trachea midline Respiratory/Chest: chest non-tender, lungs clear, normal breath sounds, no respiratory distress Cardiovascular: regular rate, rhythm, no gallop, no murmur Abdomen: normal bowel sounds, non tender, soft, no organomegaly Extremities: no calf tenderness, normal capillary refill Neurologic/Psychiatric: alert, oriented x 3 Skin: normal color, no rash, + pertinent finding ( decreasing erythema of the leg, packing in place) Lymphatic: no adenopathy Laboratory Results RUN DATE: 10/29/16 [facility] LAB PAGE 1 RUN TIME: 956 Specimen Inquiry PATIENT: MIKA HORTON LOC: [facility] U # : [id number] AGE/SX: 51/M ROOM: E314 REG : 10/25/[address]: Woody Leslie M.D : 1965 BED: 1 DIS : STATUS: ADM IN TLOC: SPEC #: [id number] DAMON: 10/27/16 STATUS: RES REQ #: [id number] RECD: 10/27/[address]: Woody Leslie M.D. SOURCE: CELLULITIS ENTR: 10/27/[address]: Andrae Sparks MD [facility]: El Kimble, D.OSienna No Doctor, Assigned ORDERED: AER/NURY CULTSMR Procedure Result Verified Site GRAM STAIN Final 10/27/16-1137 RESULT MODERATE WBCs SEEN NO ORGANISMS SEEN OR AER/NURY CULT Preliminary 10/29/16-956 NO GROWTH TO DATE. 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 Now s/p I+D. Operative cultures are negative, suggesting prior antibiotic therapy effective. Patient will require at least 7-10 days more of IV antibiotics, and continue on current therapy or consider change to daptomycin once daily for easier outpatient therapy. Will discuss.
--- NOTE | 2016-10-29 18:34 | Hospitalist Progress Note ---
Hospitalist Progress Note Date of Service Oct 29, 2016. Subjective Pt evaluation today including: conversation w/ patient, physical exam, chart review, lab review, review of studies, review of inpatient medication list Patient had no acute issues overnight Patient denies any lower extremity pain, fevers Constitutional: No fever Eyes: No worsening of vision ENT: No hearing loss Respiratory: No cough, No dyspnea on exertion, No shortness of breath Cardiovascular: No chest pain, No claudication, No edema Abdomen: No constipation, No diarrhea, No pain Musculoskeletal: No joint pain Male : No dysuria Neurologic: No memory loss Psychiatric: No depression symptoms Heme: No abnormal bleeding/bruising Endo: No fatigue Skin: No rash Medications Current Inpatient Medications Medications (Trade) Dose Ordered Sig/Te Route Start Time Stop Time Status Last Admin Dose Admin Acetaminophen (Tylenol Tab) 650 mg Q4H PRN PO 10/25/16 04:15 11/24/16 04:14 10/28/16 19:42 650 MG Diphenhydramine HCl 25 mg 25 mg Q4H PRN IV 10/25/16 04:15 11/24/16 04:14 Promethazine HCl/ Sodium Chloride (Phenergan Inj/ Nss 50ml) 50.5 ml @ 202 mls/hr Q4H PRN IV 10/25/16 04:15 11/24/16 04:14 Zolpidem Tartrate (Ambien Tab) 5 mg HSZ PRN PO 10/25/16 04:15 11/24/16 04:14 Ondansetron HCl (Zofran Inj) 4 mg Q6H PRN IV 10/25/16 04:15 11/24/16 04:14 Morphine Sulfate (MoRPHine SULFATE INJ) 2 mg Q2H PRN IV 10/25/16 04:15 11/08/16 04:14 10/29/16 02:31 2 MG Morphine Sulfate 4 mg 4 mg Q2H PRN IV 10/25/16 04:15 11/08/16 04:14 10/27/16 19:59 4 MG Acetaminophen 100 ml @ 400 mls/hr Q8H PRN IV 10/25/16 04:15 11/24/16 04:14 Lorazepam 0.5 mg/ Syringe 1 ml @ 1 mls/min Q4H PRN IV 10/25/16 08:00 11/24/16 07:59 Ceftaroline Fosamil/Sodium Chloride (Teflaro Inj/Nss 250ml) 270 ml @ 250 mls/hr Q12@0800,2000 IV 10/26/16 20:00 11/05/16 19:59 10/29/16 08:13 250 MLS/HR Acetaminophen/ Hydrocodone Bitart ([place] 5/325 Tab) 1-2 TABS FOR PAIN 1 TABLET ... Q6H PRN PO 10/27/16 08:15 11/10/16 08:14 10/29/16 18:05 2 TAB Objective Vital Signs Date Time Temp Pulse Resp B/P Pulse Ox O2 Delivery O2 Flow Rate FiO2 10/29/16 15:00 36.5 50 16 130/86 96 Room Air 10/29/16 11:44 36.3 63 14 129/83 96 Room Air 10/29/16 10:20 Room Air 10/29/16 08:01 36.5 55 16 129/85 96 Room Air 10/29/16 07:35 Room Air 10/28/16 23:30 Room Air 10/28/16 23:10 36.5 57 16 115/76 96 Room Air Physical Exam General Appearance: WD/WN, no apparent distress Eyes: normal inspection ENT: normal ENT inspection Neck: supple, no adenopathy Respiratory/Chest: chest non-tender, lungs clear Cardiovascular: regular rate, rhythm, no edema Abdomen: normal bowel sounds, non tender, soft Extremities: normal range of motion, non-tender Neurologic/Psychiatric: bolt header II-XII nml as tested, no motor/sensory deficits, alert, oriented x 3 Skin: normal color, warm/dry, no rash Lymphatic: no adenopathy Laboratory Results Last 24 Hours Test 10/29/16 05:39 White Blood Count 7.91 K/uL Red Blood Count 4.66 M/uL Hemoglobin 14.0 g/dL Hematocrit 39.2 % Mean Corpuscular Volume 84.1 fL Mean Corpuscular Hemoglobin 30.0 pg Mean Corpuscular Hemoglobin Concent 35.7 g/dl RDW Standard Deviation 39.3 fL RDW Coefficient of Variation 13.0 % Platelet Count 292 K/uL Mean Platelet Volume 9.5 fL Assessment and Plan Left Lower extremity Abscess - POD#2 s/p I/D by orthopedic surgery - wound cultures NGTD - appreciate infectious disease input - per ID pt will require 7-10 more days if IV antibiotics - PICC line in am Morbid Obesity - nutrition consultation PPX- lovenox Disposition- home mick with IV antibiotics
[2016-10-30 00:05] VITALS: BP 125/80; PULSE 53; TEMP 36.5; O2SAT 95
[2016-10-30] MEDS: HYDROCODONE/ACETAMOPHEN 5/325MG TAB PO PRN ×2 (06:21→12:34)
[2016-10-30 07:44] LABS: MEAN CELL VOLUME 83.8 fL (80-100); MEAN CORPUSCULAR HEMOGLOBIN 29.2 pg (25-34); MEAN CORPUSCULAR HGB CONC 34.9 g/dl (32-36); MEAN PLATELET VOLUME 9.4 fL (7.4-10.4); PLATELET COUNT 312 K/uL (130-400); RED BLOOD COUNT 4.89 M/uL (4.7-6.1); WHITE BLOOD COUNT 7.58 K/uL (4.8-10.8)
[2016-10-30 07:54] VITALS: BP 114/77; PULSE 60; TEMP 36.6; O2SAT 93
[2016-10-30] MEDS: CEFTAROLINE FOSAMIL INJ 600 MG in SODIUM CHLORIDE 0.9% 250ML 250 ML IV SCH (07:58)
[2016-10-30] MEDS ORDERED: DAPTOMYCIN CONSULT ACTIVE PRN ×2 (10:45)
[2016-10-30] MEDS ORDERED: DAPTOmycin IV 650 MG in SODIUM CHLORIDE 0.9% 50ML 50 ML IV SCH (11:00)
[2016-10-30] MEDS ORDERED: DAPT500I IV (11:41)
--- NOTE | 2016-10-30 11:43 | Discharge Instructions ---
Discharge Instructions Admission Admission Date: Oct 25, 2016 at 04:12 Admission Diagnosis: Abscess Of Left Lower Extremity, Cellulitis Of. Discharge Care Plan - Problem: Medical Problems: (1) Abscess of left lower extremity (2) Cellulitis of left lower extremity Care Plan - Goal(s): Decrease discomfort, Improve function Care Plan - Instructions: Activity Recommendations: no limitations Recommended Home Diet: Regular Provider Instructions: You will be called with an appointment with infectious disease and orthopedics this week Please continue to wrap your left leg with CHANA bandages daily until seen by orthopedic surgery VTE Core Measure Inpt VTE Proph given/why not?: SCD's [place]hu Recommendations: Call your doctor if: * Temperature above 101 degrees * Pain not relieved by pain medicine ordered * There is increased drainage or redness from any incision * You have any unanswered questions or concerns. Your Doctors Instructions noted above were prepared by provider Marisela Will.
[2016-10-30 15:01] VITALS: BP 114/77; PULSE 60; TEMP 36.6; O2SAT 93
--- NOTE | 2016-10-30 17:40 | Discharge Summary ---
Discharge Summary Date of Service Oct 30, 2016. Discharge Summary Admission Date: Oct 25, 2016 at 04:12 Discharge Date: Oct 30, 2016 Discharge Disposition: Home Principal Diagnosis: Left lower extremity Cellulitis/Asbcess Procedures: 10.27.16- I/D of LLE abscess Consultations: Infectious Disease Orthopedic Surgery Medication Reconciliation New Medications: Daptomycin (Daptomycin) 500 Mg Inj 650 MG IV DAILY for 7 Days Continued Medications: Acetaminophen (Tylenol) 325 Mg Tab 650 MG PO DIRECTED PRN for Pain, TAB Hydrocodone/Acetaminophen 7.5MG/325MG ([place] 7.5MG/325MG) Tab 1 TAB PO Q8 PRN for Pain, TAB PRN PAIN Discontinued Medications: Cephalexin Monohydrate (Keflex) 500 Mg Cap 500 MG PO QID, CAP Discharge Exam Review of Systems: Constitutional: No chills Eyes: No worsening of vision Respiratory: No sputum Cardiovascular: No orthopnea Abdomen: No pain, No vomiting Musculoskeletal: No joint pain Genitourinary - Female: No dysuria Genitourinary - Male: No dysuria, No hematuria Neurologic: No memory loss Psychiatric: No depression symptoms Endocrine: No fatigue Integumentary: No rash Physical Exam: General Appearance: WD/WN, no apparent distress Eyes: normal inspection ENT: normal ENT inspection Neck: supple Respiratory/Chest: chest non-tender, lungs clear Cardiovascular: regular rate, rhythm Abdomen / GI: normal bowel sounds, non tender, soft Extremities: + pertinent finding (right lower extremity in CHANA bandage, palable dorslis pulse, +1 edema up to knee) Hospital Course Patient admitted to the hospital for 5 days of lower extremity swelling. Patient came to ED 3 days prior and was given keflex which did not help symptos. Swelling got worse and pt presented again. Pt admitted to hospitalist service. Orthopedics and Infectious disease were consulted. Pt started on tefloro per ID. MRI of LE showed a fluid collection. Orthopedisc did I/D on 10.27.16.ID recommended pt be switched to daptomycin and continue antibiotics for 7 more days. Follow up appointments were made for Infectious disease and Orthopedic surgery. Left Lower extremity Abscess - POD#3 s/p I/D by orthopedic surgery - wound cultures NGTD - appreciate infectious disease input - per ID pt will require 7-10 more days if IV antibiotics - PICC lineinserted Morbid Obesity - nutrition consultation PPX- lovenox Disposition- home mick with IV antibiotics Total Time Spent: Greater than 30 minutes This includes examination of the patient, discharge planning, medication reconciliation, and communication with other providers. Discharge Instructions Please refer to the electronic Patient Visit Report (Discharge Instructions) for additional information.
== END 2016-10-30 16:00 | disposition home health service (06) | DRG 571 ==
LOC: ENRESERVDT → ENRESERVTM → C.EDB 01:36 → C.3E 04:12
PROVIDERS: ADMIT Hospitalist; ATTEND Hospitalist
PROC: 0JBP0ZZ Excision of Left Lower Leg Subcutaneous Tissue and Fascia, Open Approach (ICD-10-PCS; principal; 2016-10-27 07:15)
PROC: 02HV33Z Insertion of Infusion Device into Superior Vena Cava, Percutaneous Approach (ICD-10-PCS; 2016-10-30)
DX: L03.116 Cellulitis of left lower limb (principal); Z68.41 Body mass index [BMI] 40.0-44.9, adult; Z88.0 Allergy status to penicillin; E66.01 Morbid (severe) obesity due to excess calories; D89.1 Cryoglobulinemia

== ENCOUNTER → 2016-11-15 | Outpatient (CLI) | payer BC ==
[~2016-11-15] MED LIST changes: +ACET-1311 PO; -CEPH500C PO; +DAPT500I IV
--- NOTE | 2016-11-15 09:58 | DIAGNOSTIC IMAGING REPORT ---
ULTRASOUND LEFT LOWER EXTREMITY VENOUS CLINICAL HISTORY: Left leg swelling and cellulitis. COMPARISON STUDY: Left lower extremity venous ultrasound dated 10/22/2016. TECHNIQUE: Real-time, grayscale, and color Doppler sonography of the deep veins of the left lower extremity was performed from the inguinal crease to the calf. Compression and augmentation were utilized. FINDINGS: There is no sonographic evidence of deep venous thrombosis identified in the left lower extremity. The common femoral, superficial femoral, and popliteal veins are patent and normally compressible. The greater saphenous vein and the profunda femoris vein at the junction with the common femoral vein are clear. The visualized calf veins are patent. IMPRESSION: There is no sonographic evidence of deep venous thrombosis identified in the left lower extremity. Electronically signed by: Donald Palomino M.D. 11/15/2016 9:57 AM Dictated Date/Time: 11/15/2016 9:56 AM
== END | disposition home or self-care (01) ==
LOC: C.ULTR 09:23
PROVIDERS: ATTEND Internal Medicine Geriatric Medicine
DX: L03.116 Cellulitis of left lower limb (principal); R60.9 Edema, unspecified

== ENCOUNTER → 2017-06-19 | Outpatient (CLI) | payer BC ==
--- NOTE | 2017-06-20 06:15 | SPLIT NIGHT TECHNICIAN REPORT ---
[facility] Split Night Polysomnogram - Pedal Assembler Report Study date: 06/19/2017 Referring Physician: DR. Lauro MAHONEY Name: MIKA HORTON Pedal Assembler: Rai Vick [facility]. Date of : 1965 Height: 52 years, Height 6' 2" Sex: Male Weight: 336 lbs Age: 52 Neck Circum: 18.5 inches BMI: Medications: 43.14 NO MEDS LISTED Patient History PATIENT HAD A SLEEP STUDY DONE IN 2008 AND WAS POSITIVE FOR SEVERE MARIA ESTHER. HE HAD AN AHI OF 70/HR AT THE THAT TIME. HE USED CPAP FOR ABOUT A YEAR AND THEN QUIT BECAUSE HE FELT THAT IT WASNT WORKING FOR HIM. HE IS HERE TODAY FOR AN EVALUATION FOR MARIA ESTHER. ESS = 2 RM 7 Parameters Monitored NPSG: E1-M2, E2-M1, Fp1-M2, Fp2-M1, F3-M2, F4-M2, F4-M1, C3-M2, C4-M2, C4-M1, O1-M2, O2-M2, O2-M1, T3-M2, T4-M1, P3-M2, P4-M1, CHIN1, CHIN2, HR, EKG, Legs, PFLOW, SNOR, FLOW, CFLOW, Tidal Volume, THOR, ABDO, SpO2, PLTH, CPRESS, ETCO2 Wave, ETCO2, pH SLEEP SUMMARY DATA DIAGNOSTIC TREATMENT Lights Out: 10:03:03 PM 1:11:33 AM Lights On: 1:05:33 AM 5:33:03 AM Total Recording Time (TRT): 183.0 min. 262.0 min. Total Sleep Time (TST): 103.5 min. 185.0 min. NREM Time: 103.5 min. 142.5 min. REM Time: 0.0 min. 42.5 min. Sleep Period Time (SPT): 118.0 min. 250.0 min. Sleep Efficiency (SE): 57 % 71 % Sleep Latency: 64.5 min. 7.5 min. Arousal Index: 23.2 33.4 PAP Treatment Levels: 4, 6, 7, 8, 9, 9/5, 11/7, 12/7, 13/7, 14/7, 16/7, 18/8, 19/9, 20/10, 21/11, 22/12 * Optimal Pressure(s) SLEEP STAGING DATA DIAGNOSTIC TREATMENT Duration (min) TST % Duration (min) TST % Stage Wake: 79.0 min. -- 77.0 min. -- WASO: 14.5 min. -- 65.0 min. -- NREM: 103.5 min. 100 % 142.5 min. 77 % Stage N1: 16.5 min. 16 % 49.5 min. 27 % Stage N2: 87.0 min. 84 % 93.0 min. 50 % Stage N3: 0.0 min. 0 % 0.0 min. 0 % REM: 0.0 min. 0 % 42.5 min. 23 % POSITIONAL DATA Event Count Index Event Count Index Supine: 88 77.1 67 47.0 Supine NREM: 88 77.1 67 47.0 Supine REM: N/A N/A N/A N/A Non-Supine: 34 58.3 38 22.9 Non-Supine NREM: 34 58.3 36 37.9 Non-Supine REM: N/A N/A 2 2.8 AROUSAL SUMMARY DATA: Event Count Index Event Count Index Apnea Arousals: 4 12.8 14 15.2 Hypopnea Arousals: 11 6.4 18 5.8 Snore Arousals: 4 2.3 18 5.8 PLM Arousals: 5 2.9 1 0.3 Non-Specific Arousals: 16 9.3 45 14.6 Total Arousals: 40 23.2 103 33.4 MYOCLONUS (PLM) Event Count Index Event Count Index PLM: 35 20.3 9 2.9 PLM AROUSAL: 5 2.9 1 0.3 PLM W/O AROUSAL 35 20.3 8 2.6 PLM W/RESP EVENT 6 0.0 0 0.0 MYOCLONUS (PLM) Event Count Index Event Count Index LM: 4 24.9 41 13.3 LM AROUSAL: 4 2.3 5 1.6 LM W/O AROUSAL LM W/RESP EVENT LM NON SPECIFIC 44 25.5 33 10.7 HEART RATE DATA DIAGNOSTIC TREATMENT Sleep (bpm): 56 56 REM (bpm): N/A 90 NREM (bpm): 90 91 Tachycardia Count: 0 0 Tachycardia Duration: 0.00 0 Bradycardia Count: 0 0 Bradycardia Duration: 0.00 0 DIAGNOSTIC PORTION TREATMENT PORTION RESPIRATORY DATA Event Count Index Event Count Index AHI: -- 70.7 -- 34.1 RDI: -- 70.7 -- 34 Obstructive Apnea: 6 3.5 8 2.6 Central Apnea: 4 2.3 38 12.3 Mixed Apnea: 12 7.0 1 0.3 Hypopnea: 100 58.0 58 18.8 RERA: 0 0.0 0 0.0 Total Apneas: 22 12.8 47 15.2 RESPIRATORY DATA REM NREM SLEEP REM NREM SLEEP Supine Position: Obstructive Apneas: N/A 6 6 N/A 8 8 Central Apneas: N/A 4 4 N/A 32 32 Mixed Apneas: N/A 12 12 N/A 1 1 Hypopneas: N/A 66 66 N/A 26 26 RERA N/A 0 0 N/A 0 0 Total Supine Events: N/A 88 88 N/A 67 67 Supine AHI: N/A 77.1 77.1 N/A 47.0 47.0 Supine RDI: N/A 77.1 77.1 N/A 47.0 47.0 REM NREM SLEEP REM NREM SLEEP Non-Supine Position: Obstructive Apneas: N/A 0 0 0 0 0 Central Apneas: N/A 0 0 0 6 6 Mixed Apneas: N/A 0 0 0 0 0 Hypopneas: N/A 34 34 2 30 32 RERA N/A 0 0 0 0 0 Total Supine Events: N/A 34 34 2 36 38 Supine AHI: N/A 58.3 58.3 2.8 37.9 22.9 Supine RDI: N/A 58.3 58.3 2.8 37.9 22.9 OXYGEN DESTAURATION DATA: Event Count Index Event Count Index REM Desaturations: N/A N/A 2 2.8 NREM Desaturations: 116 67.2 103 43.4 SNORE DATA DIAGNOSTIC TREATMENT Snore Time: 12.5 1:19:03 AM Snore TST%: 6 10 Snore Arousal Count: 4 18 Snore Arousal Index: 2.3 5.8 Desaturation Event Summary: Minimum %SpO2 Event Count Mean/Min/Max Duration(sec.) Desaturation Index % Time In Bed > 90 245 27.9 / 8.8 / 71.7 55.6 59.6 86 - 90 43 23.0 / 8.8 / 38.8 15.4 37.8 81 - 85 0 N/A 0.0 2.7 76 - 80 0 N/A 0.0 0.0 71 - 75 0 N/A 0.0 0.0 66 - 70 0 N/A 0.0 0.0 61 - 65 0 N/A 0.0 0.0 56 - 60 0 N/A 0.0 0.0 51 - 55 0 N/A 0.0 0.0 < 50 0 N/A 0.0 0.0 OXYGEN SATURATION DATA DIAGNOSTIC TREATMENT SpO2 Mean Sleep: 90 % 91 % SpO2 Mean REM: N/A % 90 % SpO2 Mean NREM: 90 % 91 % SpO2 Minimum Sleep: 82 % 82 % SpO2 Minimum REM: N/A % 87 % SpO2 Minimum NREM: 82 % 82 % Time Below 90% (TST): 42.1 60.6 Time Below 88% (TST): 20.0 11.5 Total REM NREM Awake <50% 0.0 min. 0.0 min. 0.0 min. 0.0 min. 51 - 60% 0.0 min. 0.0 min. 0.0 min. 0.0 min. 61 - 70% 0.0 min. 0.0 min. 0.0 min. 0.0 min. 71 - 80% 0.0 min. 0.0 min. 0.0 min. 0.0 min. 81 - 90% 179.4 min. 29.3 min. 125.5 min. 24.7 min. 91 - 100% 264.4 min. 13.2 min. 120.5 min. 130.6 min. Average 91 90 91 92 Minimum SpO2 82 87 82 83 Desaturation Event Index 34.5 2.8 53.4 14.3 # Desat. Events below 89% 170 1 158 11 Time(%) with Saturation below 89% 15.0 0.4 12.5 2.1 Time(min.) with Saturation below 89% 66.4 1.9 55.4 9.1 Recording Pedal Assembler Comments: Mr. Horton slept in the right, left, supine and prone positions. No cardiac arrhythmia noted. Leg movements noted. No bruxism noted. Snoring was noted and scored as a 5 on a scale of 1 through 5. 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 CPAP was initiated at +4 CMH2O and up-titrated to a level of +9 CMH2O. At this time, I switched to BIPAP due to many central apneas seen in stage 2 sleep up until that time. BIPAP was started at 9/5 and increased to 14/7. At this time, a rate of 12 was added due to central apneas. BIPAP was increased to 22/12 due to apneas and hypopneas with a rate of 12. A Resmed Air Touch F20 size large full-face mask was used during titration Mr. Horton awoke to use the restroom 0 times during the night. Mr. Horton stated I did not sleep as well as I do when I am in my own bed. The patient seemed to fight sleep once the mask was on. It was difficulty for the patient to reach stage 2 sleep at times, making it difficult to titrate. The patient had trouble wearing the mask in the past, which is why he quit using it. The patient was especially more difficult to treat while he was in the supine position. The final report will be interpreted and signed by a sleep physician. The completed physician report will then be placed in the patient medical record. Therapy Event: Therapy (cm H20) 0 4 6 7 8 9 05/06 07/08 08/07 Total Time at Pressure (min.) 182.5 21.0 10.3 7.0 15.2 41.7 7.2 7.0 5.3 TST at Pressure (min.) 103.5 8.5 7.8 4.0 12.7 38.7 7.2 7.0 5.3 # Periods 1 1 1 1 1 1 1 1 1 Sleep Onset (min.) 64.5 7.5 0.0 0.0 0.0 0.0 0.0 0.0 0.0 REM Onset (min.) N/A N/A N/A N/A N/A 4.5 N/A N/A N/A Sleep Efficiency % 56 40 75 57 83 92 100 100 100 Wakefulness (%) 43.3 59.5 24.2 42.8 16.5 7.2 0.0 0.0 0.0 Wakefulness (min.) 79.0 12.5 2.5 3.0 2.5 3.0 0.0 0.0 0.0 NREM 1 (%) 9.0 40.4 42.0 38.1 23.1 3.6 0.0 0.0 0.0 NREM 1 (min.) 16.5 8.5 4.3 2.7 3.5 1.5 0.0 0.0 0.0 NREM 2 (%) 47.7 0.1 33.7 19.1 60.5 18.5 100.0 100.0 100.0 NREM 2 (min.) 87.0 0.0 3.5 1.3 9.2 7.7 7.2 7.0 5.3 NREM 3 (%) 0.0 0.0 0.0 0.0 0.0 0.0 0.0 0.0 0.0 NREM 3 (min.) 0.0 0.0 0.0 0.0 0.0 0.0 0.0 0.0 0.0 REM (%) 0.0 0.0 0.0 0.0 0.0 70.7 0.0 0.0 0.0 REM (min.) 0.0 0.0 0.0 0.0 0.0 29.5 0.0 0.0 0.0 # Arousals 40 10 9 4 12 9 8 3 0 Arousal Index 23.2 70.4 69.1 60.0 56.8 13.9 66.3 25.9 0.0 # Snore 507 4 3 2 13 4 37 72 82 Snore Index 293.9 28.2 23.0 30.0 61.5 6.2 306.7 620.5 925.7 AHI 70.7 63.4 69.1 89.9 71.0 12.4 66.3 43.1 0.0 AHI Supine 77.1 63.4 69.1 89.9 81.0 84.9 66.3 43.1 0.0 AHI Non-Supine 58.3 N/A N/A N/A 59.8 3.5 N/A N/A N/A NREM AHI 70.7 63.4 69.1 89.9 71.0 39.0 66.3 43.1 0.0 REM AHI N/A N/A N/A N/A N/A 4.1 N/A N/A N/A RDI 70.7 63.4 69.1 89.9 71.0 12.4 66.3 43.1 0.0 # Obstructive 6 1 2 0 1 0 4 0 0 # Central Ap 4 6 3 6 7 4 2 0 0 # Mixed 12 0 0 0 0 1 0 0 0 # Hypopneas 100 2 4 0 7 3 2 5 0 RERAS 0 0 0 0 0 0 0 0 0 Total Respiratory Events 122 9 9 6 15 8 8 5 0 Time Below SpO2 89.00% (min.) 30.5 0.0 0.0 0.0 1.3 2.4 0.6 2.1 2.2 Mean NREM SpO2 (%) 90 93 93 93 91 91 91 90 89 Mean REM SpO2 (%) N/A N/A N/A N/A N/A 90 N/A N/A N/A Mean Sleep SpO2 (%) 90 93 93 93 91 90 91 90 89 Min NREM SpO2 (%) 82 90 89 89 87 87 88 86 87 Min REM SpO2 (%) N/A N/A N/A N/A N/A 87 N/A N/A N/A Position Supine (min.) 68.5 8.5 7.8 4.0 6.7 4.2 7.2 7.0 5.3 Position Non-supine (min.) 35.0 0.0 0.0 0.0 6.0 34.5 0.0 0.0 0.0 LM Index Sleep 45.2 14.1 46.1 45.0 42.6 15.5 0.0 0.0 0.0 LM Index NREM 45.2 14.1 46.1 45.0 42.6 19.5 0.0 0.0 0.0 LM Index REM N/A N/A N/A N/A N/A 14.2 N/A N/A N/A Mean Heart Rate (bpm) 56 54 54 55 55 57 58 58 59 Min Heart Rate (bpm) 48 50 49 49 50 48 52 53 57 Therapy (cm H20) 13/7 14/7 16/7 18/8 19/9 20/10 21/11 22/12 Total Time at Pressure (min.) 6.9 43.0 6.3 5.6 36.6 11.6 19.8 17.0 TST at Pressure (min.) 6.9 23.0 4.8 5.6 23.9 5.6 10.9 13.0 # Periods 1 1 1 1 2 1 2 1 Sleep Onset (min.) 0.0 0.0 0.0 0.0 2.7 0.0 0.0 0.0 REM Onset (min.) N/A N/A N/A 5.5 0.0 N/A N/A N/A Sleep Efficiency % 100 53 76 100 65 48 55 76 Wakefulness (%) 0.0 46.5 23.9 0.0 34.6 51.8 44.8 23.5 Wakefulness (min.) 0.0 20.0 1.5 0.0 12.7 6.0 8.8 4.0 NREM 1 (%) 0.0 15.1 23.9 9.0 26.8 48.2 23.3 2.9 NREM 1 (min.) 0.0 6.5 1.5 0.5 9.8 5.6 4.6 0.5 NREM 2 (%) 100.0 38.4 52.1 89.9 3.2 0.0 31.9 73.6 NREM 2 (min.) 6.9 16.5 3.3 5.0 1.2 0.0 6.3 12.5 NREM 3 (%) 0.0 0.0 0.0 0.0 0.0 0.0 0.0 0.0 NREM 3 (min.) 0.0 0.0 0.0 0.0 0.0 0.0 0.0 0.0 REM (%) 0.0 0.0 0.0 1.2 35.4 0.0 0.0 0.0 REM (min.) 0.0 0.0 0.0 0.1 12.9 0.0 0.0 0.0 # Arousals 0 14 4 3 12 7 5 3 Arousal Index 0.0 36.5 50.4 32.2 30.1 75.2 27.5 13.8 # Snore 103 156 1 0 11 6 10 0 Snore Index 892.6 406.4 12.6 0.0 27.6 64.5 55.0 0.0 AHI 0.0 39.1 63.0 21.5 30.1 53.7 33.0 0.0 AHI Supine 0.0 13.0 N/A N/A 62.4 53.7 33.2 N/A AHI Non-Supine N/A 78.1 63.0 21.5 22.0 N/A 32.9 0.0 NREM AHI 0.0 39.1 63.0 21.7 65.6 53.7 33.0 0.0 REM AHI N/A N/A N/A 0.0 0.0 N/A N/A N/A RDI 0.0 39.1 63.0 21.5 30.1 53.7 33.0 0.0 # Obstructive 0 0 0 0 0 0 0 0 # Central Ap 0 8 0 0 0 0 2 0 # Mixed 0 0 0 0 0 0 0 0 # Hypopneas 0 7 5 2 12 5 4 0 RERAS 0 0 0 0 0 0 0 0 Total Respiratory Events 0 15 5 2 12 5 6 0 Time Below SpO2 89.00% (min.) 0.2 4.2 2.0 1.9 3.0 0.2 4.2 2.6 Mean NREM SpO2 (%) 90 91 90 89 91 93 91 89 Mean REM SpO2 (%) N/A N/A N/A 89 90 N/A N/A N/A Mean Sleep SpO2 (%) 90 91 90 89 90 93 91 89 Min NREM SpO2 (%) 88 85 84 86 83 88 82 88 Min REM SpO2 (%) N/A N/A N/A 89 88 N/A N/A N/A Position Supine (min.) 6.9 13.8 0.0 0.0 4.8 5.6 3.6 0.0 Position Non-supine (min.) 0.0 9.2 4.8 5.6 19.1 0.0 7.3 13.0 LM Index Sleep 0.0 7.8 25.2 10.7 15.1 0.0 22.0 18.4 LM Index NREM 0.0 7.8 25.2 10.9 27.3 0.0 22.0 18.4 LM Index REM N/A N/A N/A 0.0 4.6 N/A N/A N/A Mean Heart Rate (bpm) 59 57 55 56 55 58 56 54 Min Heart Rate (bpm) 56 49 50 51 48 53 50 50
--- NOTE | 2017-06-25 13:11 | Sleep Study ---
Sleep Study Report Date of Service: 06/19/2017 Sleep Study Report Clinical data: The patient is a 52-year-old male with a BMI of 43.14. He is referred by Dr. Gagandeep Amaya. Patient has a history of severe apnea in 2008 with an apnea- hypopnea index of 70. He wore CPAP for about 1 year and then quit. He never got comfortable with it. Patient has an [place] score of 2. He had a recent cellulitis. He is referred back for a split study to be done in the sleep lab. Sleep architecture: During the diagnostic portion of the study the total sleep period was 118 minutes. The total sleep time was 103.5 minutes. The sleep efficiency was reduced to 57 percent. This is mainly related to a prolonged sleep latency of 64.5 minutes. Sleep consisted of stage N1 16 percent, stage N2 84 percent, stage N3 0 percent , stage REM 0 percent. During the therapeutic portion of the study the patient's nocturnal events were treated 1st with CPAP and then with BiPAP. The total sleep period was 250 minutes. The total sleep time was 185 minutes. The sleep efficiency was 71 percent. The sleep latency was 7.5 minutes. Sleep consisted of stage N1 27 percent, stage N2 50 percent, stage N3 0 percent , stage REM 23 percent. Arousal data: During the diagnostic portion of the study the patient had 40 arousals including 4 apnea arousals, 11 hypopnea arousals, 4 snoring arousals, 5 PLM arousals, and 16 nonspecific arousals. The arousal index was 23.2. During the therapeutic portion of the study the patient had a total of 103 arousals including 14 apnea arousals, 18 hypopnea arousals, 18 snoring arousals , 1 PLM arousal, and 45 nonspecific arousals. The arousal index was 33.4. PLM data: During the diagnostic portion of the study the patient had 35 periodic limb movements for a PLM index of 20.3. There were 5 arousals associated with limb movements for a PLM arousal index of 2.9. During the therapeutic portion of the study patient had only 9 periodic limb movements for a PLM index of 2.9. There was 1 arousal for a PLM arousal index of 0.3. EKG: The underlying cardiac rhythm was normal sinus. The cardiac rates 56-91 beats per minute. No significant arrhythmias were noted. Respiratory data: During the diagnostic portion of the study the patient had 122 respiratory events including 6 obstructive apneas, 4 central apneas, 12 mixed apneas, and 100 hypopneas. Hypopneas were scored according to the 4 percent desaturation rule. The apnea-hypopnea index was severely elevated at 70.7. During the therapeutic portion of the study patient had a total of 105 respiratory events including 8 obstructive apneas, 38 central apneas, 1 mixed apnea, and 58 hypopneas. The apnea-hypopnea index was 34.1. At the final pressure which was BiPAP 22/12, the apnea-hypopnea index was 0. It should be noted there were only 13 sleep minutes at the final pressure. Oximetry data: During the diagnostic portion of the study the mean saturation was 90. The minimum saturation was 82 percent. There were 20 minutes with saturations less than 88 percent. During the therapeutic portion of the study the mean saturation was 91 percent. The minimum saturation was 82 percent. There was a total of 11.5 minutes with saturations less than 88 percent. Physician Industrial comments: Mr. Monge slept on the right, left, supine, and prone positions. No cardiac arrhythmia noted. Leg movements noted. No bruxism noted. Snoring was noted and scored as a 5 on a scale of 1 through 5. At 1:05 a.m. the patient met specific split night criteria during the diagnostic portion of the study. CPAP was initiated at 4 centimeters and up titrated to a level of 9 centimeters. At this time the patient was switched to BiPAP due to many central apneas. BiPAP was started at 9/5 and subsequently increased to 14/7. At that time a rate of 12 was added due to central apneas. BiPAP was ultimately increased to 22/12 due to apneas and hypopneas. A ResMed air touch F 20 size large fullface mask was used during the titration. The patient was more difficult to treat while he was in the supine position. Impressions: 1. Obstructive sleep apnea-severe 2. Complex sleep apnea Comments: The patient has severe sleep apnea. This was well seen during the diagnostic portion of the study. He was subsequently switched to nasal CPAP. The patient had persistent events on CPAP and he had a significant increase in central apneas. Thus he had some degree of complex sleep apnea. He was then switched to BiPAP. Ultimately he was given a backup rate on BiPAP but the frequency of the central apneas decreased as the night went on. Unfortunately he required very high pressures. He was a very difficult titration. His final pressure was 22/12. He was at this pressure for only a short time however. In the past the patient had difficulty tolerating CPAP. Thus it is unclear how well he will tolerate the high pressures. Recommendations: 1. It is suggested that the patient be started on BiPAP 22/12 with a backup rate of 12 due to complex sleep apnea 2. It is suggested that he be ordered a ResMed Air Touch F 20 size large fullface mask 3. Suggest obtaining compliance data in approximately 2 weeks to document whether he is having persistent apnea and particularly if he is having persistent central apneas. 4. Would advise having an overnight pulse oximetry study done with BiPAP in place in approximately 2 weeks after initiating BiPAP. 5. If possible the patient should avoid sleeping in the supine position. He did have more respiratory events when supine. 6. Weight loss is advised in light of the severe elevation of body mass index at 43.14. 7. If the patient has difficulty tolerating BiPAP, consideration could be given to switching to auto BiPAP. Copies To 1: Sal Aponte DO; Gagandeep Amaya M.D.
== END | disposition home or self-care (01) ==
LOC: C.NEUR 21:00
PROVIDERS: ATTEND Internal Medicine
DX: G47.33 Obstructive sleep apnea (adult) (pediatric) (principal); G47.39 Other sleep apnea